=== PATIENT | female | born 1970 | race Caucasian/White ===

== ENCOUNTER → 2016-12-23 | Outpatient (CLI) | payer OTHER ==
--- NOTE | 2016-12-23 16:00 | REPMRS ---
Patient History The patient states she had a clinical breast exam in 12/2016. Family history of prostate cancer in father, ovarian cancer in paternal aunt at age 50 or over, and breast cancer in paternal grandmother at age 50 or over. Digital Woman Screen Mammo: December 23, 2016 - Exam #: [id number] Bilateral CC and MLO view(s) were taken. Technologist: Bonnie Hernandez, Technologist Prior study comparison: December 13, 2015, digital woman screen mammo performed at [facility]. November 29, 2014, digital woman screen mammo performed at [facility]. FINDINGS: The breast tissue is heterogeneously dense. This may lower the sensitivity of mammography. There has been no change in the appearance of the mammogram from the prior studies. There is a moderate amount of residual fibroglandular tissue which is fairly symmetric. There is no interval development of dominant mass, areas of architectural distortion, or clustered microcalcification typical of malignancy. ASSESSMENT: BI-RADS/ACR category 1 mammogram. Negative. Recommendation Routine screening mammogram in 1 year (for women over age 40). This mammogram was interpreted with the aid of an FDA-approved computer-aided dectection system. Electronically Signed By: Lorenzo Mobley MD 12/23/16 [id number]
== END ==
LOC: M WHC 14:36
PROVIDERS: ATTEND Nurse Practitioner Women's Health
DX: Z12.31 Encounter for screening mammogram for malignant neoplasm of breast (principal)

== ENCOUNTER → 2017-05-22 | Outpatient (REF) | payer OTHER ==
[~2017-05-22] MED LIST: ZYRT10TA2 PO
[2017-05-22 16:06] LABS: BASO % 0.6 % (0.0-1.0); EOS # 0.2 K/mm3 (0.0-0.50); EOS % 2.7 % (0.0-3.0); LARGE UNSTAINED CELL # 0.1 K/mm3 (0.0-0.4); LARGE UNSTAINED CELL % 1.6 % (0.0-4.0); LYMPH # 1.6 K/mm3 (1.5-4.5); LYMPH % 21.1 % (24.0-44.0); MEAN CORPUSCULAR HEMOGLOBIN 30.3 pg (27.0-33.0); MEAN CORPUSCULAR HGB CONC 33.4 g/dl (32.0-36.5); MEAN CORPUSCULAR VOLUME 90.5 fl (80.0-96.0); MONO # 0.5 K/mm3 (0.0-0.8); MONO % 6.2 % (0.0-5.0); NEUTROPHILS # 4.9 K/mm3 (1.8-7.7); NEUTROPHILS % 67.8 % (36.0-66.0); PLATELET COUNT, AUTOMATED 193 k/mm3 (150-450); RED CELL DISTRIBUTION WIDTH 12.5 % (11.5-14.5); WHITE BLOOD COUNT 7.3 K/mm3 (4.0-10.0)
[2017-05-22 16:19] LABS: ALBUMIN 3.7 GM/DL (3.2-5.2); ALBUMIN/GLOBULIN RATIO 1.23 (1.00-1.93); ALKALINE PHOSPHATASE 68 U/L (45-117); ALT/SGPT 23 U/L (12-78); ANION GAP 9 MEQ/L (8-16); AST/SGOT 12 U/L (15-37); BILIRUBIN,TOTAL 0.5 MG/DL (0.2-1.0); BLOOD UREA NITROGEN 14 MG/DL (7-18); CALCIUM LEVEL 8.4 MG/DL (8.5-10.1); CARBON DIOXIDE LEVEL 27 MEQ/L (21-32); CHLORIDE LEVEL 105 MEQ/L (98-107); CHOLESTEROL LEVEL 158 MG/DL (<200); FREE T4 1.12 NG/DL (0.76-1.46); GLOMERULAR FILTRATION RATE > 60.0 (>58); GLUCOSE, FASTING 86 MG/DL (70-105); POTASSIUM SERUM 3.9 MEQ/L (3.5-5.1); SODIUM LEVEL 141 MEQ/L (136-145); TOTAL PROTEIN 6.7 GM/DL (6.4-8.2); TRIGLYCERIDES LEVEL 57 MG/DL (<150)
== END ==
LOC: M SFHCSACK 08:02
PROVIDERS: ATTEND Physician Assistant
DX: Z00.00 Encounter for general adult medical examination without abnormal findings (principal); Z13.29 Encounter for screening for other suspected endocrine disorder; Z13.220 Encounter for screening for lipoid disorders; Z13.21 Encounter for screening for nutritional disorder

== ENCOUNTER → 2017-06-03 | Outpatient (REF) | payer OTHER | LOC: M SFHCSACK 15:43 | PROVIDERS: ATTEND Physician Assistant | DX: R30.0 Dysuria (principal) ==

== ENCOUNTER → 2017-06-23 | Outpatient (CLI) | payer OTHER | LOC: M LAB 14:23 | PROVIDERS: ATTEND Physician Assistant | DX: R63.5 Abnormal weight gain (principal) ==

== ENCOUNTER → 2017-06-23 | Outpatient (REF) | payer OTHER | LOC: M SMT 17:09 | PROVIDERS: ATTEND Nurse Practitioner Women's Health | DX: R31.29 Other microscopic hematuria (principal) ==

== ENCOUNTER → 2017-06-25 | Outpatient (REF) | payer OTHER ==
[2017-06-30 14:14] LABS: FREE CORTISOL 24HR URINE 15 ug/24 hr (0-50); FREE CORTISOL URINE 9 ug/L (Undefined)
== END ==
LOC: M SFHCSACK 13:46
PROVIDERS: ATTEND Physician Assistant
DX: R63.5 Abnormal weight gain (principal)

== ENCOUNTER → 2017-06-29 | Outpatient (CLI) | payer OTHER ==
[~2017-06-29] MED LIST changes: +ISOVUE-370 76% 100ML VIAL (Q9967) As Ordered ONE
--- NOTE | 2017-06-30 08:12 | REP ---
Clinical: Hematuria. Technique: Axial precontrast, contrast enhanced, and delayed images of the abdomen and pelvis from the lung bases to the pubic symphysis using 100 ml Isovue 370 intravenous contrast material with coronal and sagittal re-formations. Findings: Evaluation of the urinary tract system demonstrates normal appearance to the kidneys, ureters and bladder in all phases of enhancement. There is no evidence for perinephric stranding, hydroureteronephrosis, intrarenal or obstructing ureteral calculi. No renal cystic or mass lesions appreciated. Liver, spleen, pancreas, and bilateral adrenal glands are normal. The patient is status post cholecystectomy. The enteric system is without obstruction or acute inflammatory process. Pelvis demonstrates normal bladder and age-appropriate uterus/adnexa. No ascites. No free air. No adenopathy. Vasculature is normal. Musculoskeletal structures are intact. Impression: 1. Normal appearance to the urinary tract system. 2. No acute abdominopelvic pathology appreciated. Signed by Oscar Beatty MD 06/30/2017 08:03 A
== END ==
LOC: M RAD 17:00
PROVIDERS: ATTEND Nurse Practitioner Women's Health
DX: R31.29 Other microscopic hematuria (principal)
CPT/HCPCS: 74178; Q9967

== ENCOUNTER → 2017-08-06 | Outpatient (CLI) | payer OTHER ==
[~2017-08-06] MED LIST changes: -ISOVUE-370 76% 100ML VIAL (Q9967) As Ordered ONE
[2017-08-06 10:49] LABS: MEAN CORPUSCULAR HEMOGLOBIN 29.5 pg (27.0-33.0); MEAN CORPUSCULAR HGB CONC 32.8 g/dl (32.0-36.5); MEAN CORPUSCULAR VOLUME 89.9 fl (80.0-96.0); PLATELET COUNT, AUTOMATED 211 10^3/uL (150-450); RED CELL DISTRIBUTION WIDTH 12.5 % (11.5-14.5); WHITE BLOOD COUNT 6.8 10^3/uL (4.0-10.0)
[2017-08-06 11:01] LABS: INR 0.93
[2017-08-06 11:21] LABS: ANION GAP 4 MEQ/L (8-16); BLOOD UREA NITROGEN 13 MG/DL (7-18); CALCIUM LEVEL 8.9 MG/DL (8.5-10.1); CARBON DIOXIDE LEVEL 32 MEQ/L (21-32); CHLORIDE LEVEL 104 MEQ/L (98-107); CREATININE FOR GFR 0.69 MG/DL (0.55-1.02); GLOMERULAR FILTRATION RATE > 60.0 (>58); GLUCOSE, FASTING 89 MG/DL (70-105); POTASSIUM SERUM 4.9 MEQ/L (3.5-5.1); SODIUM LEVEL 140 MEQ/L (136-145)
== END ==
LOC: M LAB 09:48
PROVIDERS: ATTEND Urology
DX: D49.4 Neoplasm of unspecified behavior of bladder (principal)

== ENCOUNTER → 2017-08-31 | Outpatient (CLI) | payer OTHER ==
[~2017-08-31] MED LIST changes: +BACT800T5 PO; +TYLE650T35 PO
== END ==
LOC: M LAB 12:24
PROVIDERS: ATTEND Urology
DX: D49.4 Neoplasm of unspecified behavior of bladder (principal)

== ENCOUNTER 2017-09-02 12:15 | Day surgery (SDC) | payer OTHER ==
[~2017-09-02] VITALS: Ht 180.3 cm; Wt 122.5 kg
[~2017-09-02 12:15] MED LIST changes: -BACT800T5 PO; -TYLE650T35 PO
[2017-09-02] MEDS ORDERED: LR 1,000 ML IV ONE (12:30)
[2017-09-02] MEDS ORDERED: LIDOCAINE 2% INJ 100 MG/5 ML SDV (FOR ANES.) As Ordered ONE (14:07)
[2017-09-02] MEDS ORDERED: dexameTHASONE 4 MG/ML 1ML VIAL (J1100) As Ordered ONE (14:07)
[2017-09-02] MEDS ORDERED: ONDANSETRON 4MG/2ML VIAL (J2405) As Ordered ONE (14:07)
[2017-09-02] MEDS ORDERED: MIDAZOLAM INJ 2 MG/2 ML VIAL (J2250) As Ordered ONE (14:07)
[2017-09-02] MEDS ORDERED: fentaNYL 250 MCG/5 ML INJECTION (J3010) As Ordered ONE (14:07)
[2017-09-02] MEDS ORDERED: PROPOFOL 200 MG/20 ML VIAL As Ordered ONE (14:08)
[2017-09-02] MEDS ORDERED: ROCURONIUM BROMIDE 50 MG/5 ML VIAL/SYRINGE As Ordered ONE (14:08)
[2017-09-02] MEDS ORDERED: NEOSTIGMINE 10 MG/10 ML VIAL (J2710) As Ordered ONE (14:08)
[2017-09-02] MEDS ORDERED: GLYCOPYRROLATE INJ 0.2 MG/ML 2 ML VIAL As Ordered ONE (14:08)
[2017-09-02] MEDS ORDERED: TYLE650T35 PO (14:21)
[2017-09-02] MEDS ORDERED: BACT800T5 PO (14:21)
[2017-09-02] MEDS ORDERED: PERCOCET 5MG/325MG TAB As Ordered ONE (14:36)
[2017-09-02] MEDS ORDERED: NORCO, ANEXSIA 5/325MG TABLET (HYDROcodone/ACETAMINOPHEN) PO PRN (14:45)
[2017-09-02] MEDS ORDERED: fentaNYL 100 MCG/2 ML INJECTION (J3010) IV PRN (14:45)
[2017-09-02] MEDS ORDERED: LR 1,000 ML IV SCH (14:45)
[2017-09-02] MEDS ORDERED: ONDANSETRON 4MG/2ML VIAL (J2405) IV PRN (14:45)
[2017-09-02] MEDS ORDERED: PERCOCET 5MG/325MG TAB PO ONE (15:30)
[2017-09-02] MEDS ORDERED: METOCLOPRAMIDE INJ 10MG/2ML VIAL (J2765) As Ordered ONE (16:54)
[2017-09-02] MEDS ORDERED: METOCLOPRAMIDE INJ 10MG/2ML VIAL (J2765) IV ONE (17:00)
[2017-09-02 18:00] VITALS: BP 114/62
--- NOTE | 2017-09-03 07:31 | RO ---
DATE OF PROCEDURE: 09/02/2017 PREOPERATIVE DIAGNOSIS: Left lateral wall bladder tumor. POSTOPERATIVE DIAGNOSIS: Left lateral wall bladder tumor. SURGERY PERFORMED: Cystoscopy, plus exam under anesthesia plus bipolar transurethral resection of bladder tumor (TURBT). SURGEON: Dr. Roc Alvarez BLADE OPERATOR: None. ANESTHESIA: General. FINDINGS: 2 cm left lateral wall papillary tumor. COMPLICATIONS: None. ESTIMATED BLOOD LOSS: Minimal. HISTORY OF PRESENT ILLNESS: This is a 47-year-old female patient who had a cystoscopy done in the clinic at [facility]. We found a 2 cm left papillary bladder wall tumor. For this reason, she has consented for cystoscopy, exam under anesthesia and TURBT. PROCEDURE DESCRIPTION: In a patient under general anesthesia in supine modified low lithotomy position after prepping and draping the area of concern, which included the entire genitalia and abdomen, we started by introducing a resectoscope under video endoscopic guidance with a 30 degrees lens. The whole bladder was inspected. Both ureteral orifices were seen excreting clear urine. There was a 2 cm left papillary wall tumor. For this reason, we resected the tumor out and with an Ellik evacuator we took the specimen out and sent it for permanent pathology analysis. We fulgurated the base and took out the resectoscope. We then placed a #20 Maori Camejo catheter 3-way, plugged the third way and placed the Camejo to gravity and inflated the balloon to 20 mL. PLAN: The patient will go home with a Camejo catheter for five days. She will follow up at [facility] for a voiding trial. We have given her antibiotic and pain medication for 10 days.
== END 2017-09-02 18:10 | disposition home or self-care (01) ==
LOC: M SDC 12:15
PROVIDERS: ATTEND Urology
DX: D49.4 Neoplasm of unspecified behavior of bladder (principal); J30.89 Other allergic rhinitis; M54.5 Low back pain; G47.33 Obstructive sleep apnea (adult) (pediatric); Z88.1 Allergy status to other antibiotic agents; Z91.041 Radiographic dye allergy status; Z98.51 Tubal ligation status; Z87.891 Personal history of nicotine dependence

== ENCOUNTER → 2017-09-16 | Outpatient (REF) | payer OTHER ==
[~2017-09-16] MED LIST changes: +BACT800T5 PO; +TYLE650T35 PO
[2017-09-16 15:21] LABS: BASO % 0.6 % (0.0-1.0); EOS # 0.2 10^3/uL (0.0-0.50); EOS % 2.4 % (0.0-3.0); IMMATURE GRANULOCYTE % 0.6 % (0-0); LYMPH # 1.4 10^3/uL (1.5-4.5); LYMPH % 20.4 % (24.0-44.0); MEAN CORPUSCULAR HEMOGLOBIN 29.2 pg (27.0-33.0); MEAN CORPUSCULAR HGB CONC 32.3 g/dl (32.0-36.5); MEAN CORPUSCULAR VOLUME 90.3 fl (80.0-96.0); MONO # 0.6 10^3/uL (0.0-0.8); MONO % 8.8 % (0.0-5.0); NEUTROPHILS # 4.6 10^3/uL (1.8-7.7); NEUTROPHILS % 67.2 % (36.0-66.0); PLATELET COUNT, AUTOMATED 227 10^3/uL (150-450); RED CELL DISTRIBUTION WIDTH 12.5 % (11.5-14.5); WHITE BLOOD COUNT 6.8 10^3/uL (4.0-10.0)
[2017-09-16 15:35] LABS: ALBUMIN 3.6 GM/DL (3.2-5.2); ALBUMIN/GLOBULIN RATIO 1.03 (1.00-1.93); ALKALINE PHOSPHATASE 76 U/L (45-117); ALT/SGPT 33 U/L (12-78); ANION GAP 6 MEQ/L (8-16); AST/SGOT 20 U/L (7-37); BILIRUBIN,TOTAL 0.4 MG/DL (0.2-1.0); BLOOD UREA NITROGEN 8 MG/DL (7-18); CALCIUM LEVEL 8.7 MG/DL (8.5-10.1); CARBON DIOXIDE LEVEL 32 MEQ/L (21-32); CHLORIDE LEVEL 102 MEQ/L (98-107); CREATININE FOR GFR 0.85 MG/DL (0.55-1.02); GLOMERULAR FILTRATION RATE > 60.0 (>58); GLUCOSE, FASTING 87 MG/DL (70-105); POTASSIUM SERUM 4.6 MEQ/L (3.5-5.1); SODIUM LEVEL 140 MEQ/L (136-145); TOTAL PROTEIN 7.1 GM/DL (6.4-8.2)
== END ==
LOC: M SFHCSACK 09:43
PROVIDERS: ATTEND Physician Assistant
DX: J30.89 Other allergic rhinitis (principal); E55.9 Vitamin D deficiency, unspecified

== ENCOUNTER → 2017-10-05 | Outpatient (CLI) | payer OTHER | LOC: M SFHCSACK 13:23 | PROVIDERS: ATTEND Nurse Practitioner Women's Health | DX: N39.0 Urinary tract infection, site not specified (principal) ==

== ENCOUNTER → 2017-11-30 | Outpatient (REF) | payer OTHER | LOC: M SMT 17:31 | DX: Z85.51 Personal history of malignant neoplasm of bladder (principal) ==

== ENCOUNTER → 2017-12-23 | Outpatient (REF) | payer OTHER ==
[2017-12-23 14:45] LABS: BASO # 0.1 10^3/uL (0.0-0.2); BASO % 0.8 % (0.0-1.0); EOS # 0.1 10^3/uL (0.0-0.50); EOS % 1.5 % (0.0-3.0); HEMATOCRIT 42.6 % (36.0-47.0); IMMATURE GRANULOCYTE % 0.2 % (0-3.0); LYMPH # 1.8 10^3/uL (1.5-4.5); LYMPH % 29.7 % (24.0-44.0); MEAN CORPUSCULAR HEMOGLOBIN 29.3 pg (27.0-33.0); MEAN CORPUSCULAR HGB CONC 32.9 g/dl (32.0-36.5); MEAN CORPUSCULAR VOLUME 89.1 fl (80.0-96.0); MONO # 0.6 10^3/uL (0.0-0.8); MONO % 10.3 % (0.0-5.0); NEUTROPHILS # 3.5 10^3/uL (1.8-7.7); NEUTROPHILS % 57.5 % (36.0-66.0); PLATELET COUNT, AUTOMATED 202 10^3/uL (150-450); RED BLOOD COUNT 4.78 10^6/uL (4.00-5.40); RED CELL DISTRIBUTION WIDTH 12.5 % (11.5-14.5)
[2017-12-23 15:08] LABS: ALBUMIN 3.9 GM/DL (3.2-5.2); ALBUMIN/GLOBULIN RATIO 1.15 (1.00-1.93); ALKALINE PHOSPHATASE 74 U/L (45-117); ALT/SGPT 25 U/L (12-78); ANION GAP 4 MEQ/L (8-16); AST/SGOT 16 U/L (7-37); BILIRUBIN,TOTAL 0.6 MG/DL (0.2-1.0); BLOOD UREA NITROGEN 14 MG/DL (7-18); CALCIUM LEVEL 8.7 MG/DL (8.5-10.1); CARBON DIOXIDE LEVEL 31 MEQ/L (21-32); CHLORIDE LEVEL 106 MEQ/L (98-107); CREATININE FOR GFR 0.75 MG/DL (0.55-1.30); GLOMERULAR FILTRATION RATE > 60.0 (>58); GLUCOSE, FASTING 90 MG/DL (70-100); POTASSIUM SERUM 4.7 MEQ/L (3.5-5.1); SODIUM LEVEL 141 MEQ/L (136-145); TOTAL PROTEIN 7.3 GM/DL (6.4-8.2)
[2017-12-23 15:10] LABS: TOTAL 25(OH) VITAMIN D 42.3 NG/ML (30.0-100.0)
== END ==
LOC: M SFHCSACK 09:11
DX: J30.89 Other allergic rhinitis (principal); C67.9 Malignant neoplasm of bladder, unspecified; E55.9 Vitamin D deficiency, unspecified
CPT/HCPCS: 82306

== ENCOUNTER → 2018-03-01 | Outpatient (REF) | payer OTHER | LOC: M SMT 16:56 | DX: Z85.51 Personal history of malignant neoplasm of bladder (principal) ==

== ENCOUNTER → 2018-05-31 | Outpatient (REF) | payer OTHER | LOC: M SMT 17:18 | DX: Z85.51 Personal history of malignant neoplasm of bladder (principal) | CPT/HCPCS: 88108 ==

== ENCOUNTER → 2018-06-30 | Outpatient (REF) | payer OTHER ==
[2018-06-30 10:25] LABS: BASO % 0.4 % (0.0-1.0); EOS # 0.2 10^3/uL (0.0-0.50); EOS % 2.7 % (0.0-3.0); HEMATOCRIT 36.1 % (36.0-47.0); HEMOGLOBIN 12.2 g/dl (12.0-15.5); IMMATURE GRANULOCYTE % 0.7 % (0-3.0); LYMPH # 2.1 10^3/uL (1.5-4.5); LYMPH % 29.1 % (24.0-44.0); MEAN CORPUSCULAR HGB CONC 33.8 g/dl (32.0-36.5); MEAN CORPUSCULAR VOLUME 88.7 fl (80.0-96.0); MONO # 0.7 10^3/uL (0.0-0.8); MONO % 9.9 % (0.0-5.0); NEUTROPHILS % 57.2 % (36.0-66.0); PLATELET COUNT, AUTOMATED 197 10^3/uL (150-450); RED BLOOD COUNT 4.07 10^6/uL (4.00-5.40); RED CELL DISTRIBUTION WIDTH 12.4 % (11.5-14.5); WHITE BLOOD COUNT 7.1 10^3/uL (4.0-10.0)
[2018-06-30 11:10] LABS: ALBUMIN 3.5 GM/DL (3.2-5.2); ALBUMIN/GLOBULIN RATIO 1.09 (1.00-1.93); ALKALINE PHOSPHATASE 71 U/L (45-117); ALT/SGPT 60 U/L (12-78); ANION GAP 6 MEQ/L (8-16); AST/SGOT 27 U/L (7-37); BILIRUBIN,TOTAL 0.5 MG/DL (0.2-1.0); BLOOD UREA NITROGEN 9 MG/DL (7-18); CALCIUM LEVEL 8.5 MG/DL (8.5-10.1); CARBON DIOXIDE LEVEL 31 MEQ/L (21-32); CHLORIDE LEVEL 106 MEQ/L (98-107); CHOLESTEROL LEVEL 148 MG/DL (<200); CHOLESTEROL RISK RATIO 3.288 (<5); CREATININE FOR GFR 0.81 MG/DL (0.55-1.30); FREE T4 1.21 NG/DL (0.76-1.46); GLOMERULAR FILTRATION RATE > 60.0 (>58); GLUCOSE, FASTING 97 MG/DL (70-100); HDL CHOLESTEROL 45 MG/DL (>40); LDL CHOLESTEROL 89 MG/DL (<100); NON-HDL-C 103 MG/DL; POTASSIUM SERUM 4.2 MEQ/L (3.5-5.1); SODIUM LEVEL 143 MEQ/L (136-145); TOTAL 25(OH) VITAMIN D 60.3 NG/ML (30.0-100.0); TOTAL PROTEIN 6.7 GM/DL (6.4-8.2); TRIGLYCERIDES LEVEL 72 MG/DL (<150)
== END ==
LOC: M SFHCSACK 08:34
DX: J30.89 Other allergic rhinitis (principal); Z13.220 Encounter for screening for lipoid disorders; Z13.29 Encounter for screening for other suspected endocrine disorder; E55.9 Vitamin D deficiency, unspecified

== ENCOUNTER → 2018-09-13 | Outpatient (REF) | payer OTHER | LOC: M SMT 17:27 | DX: R39.9 Unspecified symptoms and signs involving the genitourinary system (principal) | CPT/HCPCS: 88108 ==

== ENCOUNTER → 2018-12-13 | Outpatient (REF) | payer OTHER ==
[~2018-12-13] MED LIST changes: +ZYRT10CA5 PO; -ZYRT10TA2 PO
== END ==
LOC: M SMT 16:16
PROVIDERS: ATTEND Urology
DX: Z12.6 Encounter for screening for malignant neoplasm of bladder (principal)

== ENCOUNTER → 2019-03-11 | Outpatient (REF) | payer OTHER ==
[2019-03-11 17:38] LABS: APPEARANCE, URINE CLEAR (CLEAR); BACTERIA, URINE AUTO NEGATIVE (NEGATIVE); BILIRUBIN, URINE AUTO NEGATIVE (NEGATIVE); BLOOD, URINE BLOOD 1+ (NEGATIVE); COLOR, URINE YELLOW (YELLOW); GLUCOSE, URINE (UA) AUTO NEGATIVE (NEGATIVE); KETONE, URINE AUTO NEGATIVE (NEGATIVE); LEUKOCYTE ESTERASE, URINE AUTO NEGATIVE (NEGATIVE); MUCUS, URINE SMALL (NEGATIVE); NITRITE, URINE AUTO NEGATIVE (NEGATIVE); PROTEIN, URINE AUTO NEGATIVE (NEGATIVE); RBC, URINE AUTO 1 /HPF (0-3); SPECIFIC GRAVITY URINE AUTO 1.014 (1.002-1.035); SQUAMOUS EPITHELIAL CELL UR AU 1 /HPF (0-6); UROBILINOGEN, URINE AUTO 0.2 mg/dL (0.0-2.0); WBC, URINE AUTO 1 /HPF (0-3)
== END ==
LOC: M LAB REF 17:07
PROVIDERS: ATTEND Physician Assistant
DX: M54.5 Low back pain (principal)

== ENCOUNTER → 2019-03-18 | Outpatient (REF) | payer OTHER | LOC: M SMT 17:05 | PROVIDERS: ATTEND Urology | DX: C67.9 Malignant neoplasm of bladder, unspecified (principal) ==

== ENCOUNTER → 2019-07-11 | Outpatient (CLI) | payer OTHER ==
[2019-07-11 12:56] LABS: BASO # 0.1 10^3/uL (0.0-0.2); BASO % 0.8 % (0.0-1.0); EOS # 0.2 10^3/uL (0.0-0.5); EOS % 3.2 % (0.0-3.0); HEMATOCRIT 40.7 % (36.0-47.0); HEMOGLOBIN 13.1 g/dl (12.0-15.5); LYMPH # 1.6 10^3/uL (1.5-5.0); LYMPH % 25.7 % (24.0-44.0); MEAN CORPUSCULAR HEMOGLOBIN 28.7 pg (27.0-33.0); MEAN CORPUSCULAR HGB CONC 32.2 g/dl (32.0-36.5); MEAN CORPUSCULAR VOLUME 89.3 fl (80.0-96.0); MONO # 0.7 10^3/uL (0.0-0.8); MONO % 10.6 % (0.0-5.0); NEUTROPHILS # 3.7 10^3/uL (1.5-8.5); NEUTROPHILS % 59.4 % (36.0-66.0); PLATELET COUNT, AUTOMATED 200 10^3/uL (150-450); RED BLOOD COUNT 4.56 10^6/uL (4.00-5.40); WHITE BLOOD COUNT 6.2 10^3/uL (4.0-10.0)
[2019-07-11 13:03] LABS: ALBUMIN 3.7 GM/DL (3.2-5.2); ALT/SGPT 27 U/L (12-78); BILIRUBIN,TOTAL 0.5 MG/DL (0.2-1.0); BLOOD UREA NITROGEN 13 MG/DL (7-18); CALCIUM LEVEL 8.7 MG/DL (8.5-10.1); CARBON DIOXIDE LEVEL 30 MEQ/L (21-32); CHLORIDE LEVEL 105 MEQ/L (98-107); CHOLESTEROL LEVEL 184 MG/DL (<200); CHOLESTEROL RISK RATIO 2.787 (<5); CREATININE FOR GFR 0.76 MG/DL (0.55-1.30); FREE T4 1.06 NG/DL (0.76-1.46); GLOMERULAR FILTRATION RATE > 60.0 (>51); GLUCOSE, FASTING 97 MG/DL (70-100); HDL CHOLESTEROL 66 MG/DL (>40); LDL CHOLESTEROL 106 MG/DL (<100); NON-HDL-C 118 MG/DL; POTASSIUM SERUM 4.5 MEQ/L (3.5-5.1); SODIUM LEVEL 141 MEQ/L (136-145); TOTAL 25(OH) VITAMIN D 46.9 NG/ML (30.0-100.0); TRIGLYCERIDES LEVEL 62 MG/DL (<150)
== END ==
LOC: M WUC 09:34
PROVIDERS: ATTEND Physician Assistant
DX: J30.89 Other allergic rhinitis (principal); Z13.220 Encounter for screening for lipoid disorders; Z13.29 Encounter for screening for other suspected endocrine disorder; E55.9 Vitamin D deficiency, unspecified

== ENCOUNTER → 2019-10-04 | Outpatient (CLI) | payer OTHER ==
--- NOTE | 2019-10-05 09:17 | REPMRS ---
Patient History The patient states she has not had a clinical breast exam in over a year. Family history of breast cancer at age 50 or over in paternal grandmother, ovarian cancer at age 50 or over in paternal aunt, prostate cancer in father. Digital Woman Screen Mammo: October 04, 2019 - Exam #: [id number] Bilateral CC and MLO view(s) were taken. Technologist: Kathi Santo, Technologist Prior study comparison: December 23, 2016, digital woman screen mammo performed at [facility]. December 13, 2015, digital woman screen mammo performed at [facility]. November 29, 2014, digital woman screen mammo performed at [facility]. FINDINGS: The breast tissue is heterogeneously dense. This may lower the sensitivity of mammography. There is a moderate amount of heterogeneously dense fibroglandular tissue which is fairly symmetric. There is no interval development of dominant mass, architectural distortion, or grouped microcalcification typical of malignancy. There has been no change in the appearance of the mammogram from the prior studies. 3-D tomosynthesis shows no additional findings. Assessment: BI-RADS/ACR category 1 mammogram. Negative Mammogram. Recommendation Routine screening mammogram of both breasts in 1 year (for women over age 40). This patient's Lifetime Breast Cancer RIsk is estimated at 14.0 %. This mammogram was interpreted with the aid of an FDA-approved computer-aided dectection system. Electronically Signed By: Quinton Westbrook MD 10/05/19 0965
== END ==
LOC: M WHC 14:08
PROVIDERS: ATTEND Nurse Practitioner Women's Health
DX: Z12.31 Encounter for screening mammogram for malignant neoplasm of breast (principal)

== ENCOUNTER → 2019-10-04 | Outpatient (REF) | payer OTHER | LOC: M PLALAB 14:25 | PROVIDERS: ATTEND Nurse Practitioner Women's Health | DX: Z12.4 Encounter for screening for malignant neoplasm of cervix (principal) ==

== ENCOUNTER → 2019-11-07 | Outpatient (REF) | payer OTHER | LOC: M SMT 17:10 | PROVIDERS: ATTEND Urology | DX: C67.9 Malignant neoplasm of bladder, unspecified (principal) ==

== ENCOUNTER → 2020-05-11 | Outpatient (REF) | payer OTHER ==
[~2020-05-11] MED LIST changes: +ACET650T61 PO; -TYLE650T35 PO
== END ==
LOC: M SMT 07:25
PROVIDERS: ATTEND Urology
DX: C67.9 Malignant neoplasm of bladder, unspecified (principal)

== ENCOUNTER → 2020-08-14 | Outpatient (CLI) | payer OTHER ==
[2020-08-14 10:50] LABS: HEMATOCRIT 41.4 % (36.0-47.0); HEMOGLOBIN 12.9 g/dl (12.0-15.5); MEAN CORPUSCULAR HEMOGLOBIN 27.9 pg (27.0-33.0); MEAN CORPUSCULAR HGB CONC 31.2 g/dl (32.0-36.5); MEAN CORPUSCULAR VOLUME 89.6 fl (80.0-96.0); PLATELET COUNT, AUTOMATED 201 10^3/uL (150-450); RED BLOOD COUNT 4.62 10^6/uL (4.00-5.40); WHITE BLOOD COUNT 5.9 10^3/uL (4.0-10.0)
[2020-08-14 11:22] LABS: ALBUMIN 3.8 GM/DL (3.2-5.2); ALT/SGPT 27 U/L (12-78); BILIRUBIN,TOTAL 0.5 MG/DL (0.2-1.0); BLOOD UREA NITROGEN 13 MG/DL (7-18); CALCIUM LEVEL 9.1 MG/DL (8.5-10.1); CARBON DIOXIDE LEVEL 30 MEQ/L (21-32); CHLORIDE LEVEL 107 MEQ/L (98-107); CHOLESTEROL LEVEL 173 MG/DL (<200); CREATININE FOR GFR 0.73 MG/DL (0.55-1.30); FREE T4 1.18 NG/DL (0.76-1.46); GLOMERULAR FILTRATION RATE > 60.0 (>51); GLUCOSE, FASTING 99 MG/DL (70-100); HDL CHOLESTEROL 62 MG/DL (>40); LDL CHOLESTEROL 97 MG/DL (<100); NON-HDL-C 111 MG/DL; POTASSIUM SERUM 4.7 MEQ/L (3.5-5.1); SODIUM LEVEL 141 MEQ/L (136-145); TRIGLYCERIDES LEVEL 68 MG/DL (<150)
[2020-08-14 11:23] LABS: TOTAL 25(OH) VITAMIN D 62.9 NG/ML (30.0-100.0)
== END ==
LOC: M WUC 09:23
PROVIDERS: ATTEND Physician Assistant
DX: E55.9 Vitamin D deficiency, unspecified (principal); G47.33 Obstructive sleep apnea (adult) (pediatric); E78.00 Pure hypercholesterolemia, unspecified; R63.5 Abnormal weight gain; Z85.51 Personal history of malignant neoplasm of bladder

== ENCOUNTER 2020-08-21 20:12 | Emergency (ER) | payer OTHER ==
[2020-08-21 20:32] LABS: BASO # 0.1 10^3/uL (0.0-0.2); BASO % 0.6 % (0.0-1.0); EOS # 0.2 10^3/uL (0.0-0.5); HEMOGLOBIN 13.3 g/dl (12.0-15.5); LYMPH # 2.8 10^3/uL (1.5-5.0); LYMPH % 31.1 % (24.0-44.0); MEAN CORPUSCULAR HEMOGLOBIN 28.2 pg (27.0-33.0); MEAN CORPUSCULAR HGB CONC 31.7 g/dl (32.0-36.5); MEAN CORPUSCULAR VOLUME 89.2 fl (80.0-96.0); MONO # 0.8 10^3/uL (0.0-0.8); MONO % 9.3 % (0.0-5.0); NEUTROPHILS # 5.1 10^3/uL (1.5-8.5); NEUTROPHILS % 56.8 % (36.0-66.0); PLATELET COUNT, AUTOMATED 225 10^3/uL (150-450); RED BLOOD COUNT 4.71 10^6/uL (4.00-5.40)
[2020-08-21 20:40] LABS: INR 0.92; PROTHROMBIN TIME 12.5 SECONDS (12.5-14.3)
[2020-08-21 21:06] LABS: ALBUMIN 3.9 GM/DL (3.2-5.2); ALT/SGPT 28 U/L (12-78); BILIRUBIN,DIRECT < 0.1 MG/DL (0.0-0.2); BILIRUBIN,TOTAL 0.3 MG/DL (0.2-1.0); CK-MB VALUE MASS 1.4 NG/ML (<3.6); CPK CREATINE PHOSPHOKINASE 59 U/L (26-192); D-DIMER QUANT 316.4 ng/ml (<500); LIPASE 395 U/L (73-393); MB/CK RELATIVE INDEX 2.37 (< OR =4); TOTAL PROTEIN 7.6 GM/DL (6.4-8.2); TROPONIN I < 0.02 NG/ML (< 0.10)
--- NOTE | 2020-08-21 21:09 | REPVR ---
PROCEDURE INFORMATION: Exam: XR Chest, 1 View Exam date and time: 08/21/2020 8:33 PM Age: 50 years old Clinical indication: Chest pain TECHNIQUE: Imaging protocol: XR of the chest Views: 1 view. COMPARISON: No relevant prior studies available. FINDINGS: Lungs: Unremarkable. No consolidation. Pleural space: Unremarkable. No pleural effusion. No pneumothorax. Heart/Mediastinum: Unremarkable. No cardiomegaly. Bones/joints: Unremarkable. IMPRESSION: No acute findings. Electronically signed by: Reno Urrutia On 08/21/2020 21:08:54 PM
[2020-08-21] MEDS ORDERED: KETOROLAC 30 MG/ML 1ML VIAL IV ONE (22:15)
[2020-08-22 01:54] VITALS: BP 107/64
--- NOTE | 2020-08-24 08:52 | ECGEPIP ---
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
--- NOTE | 2020-08-24 08:58 | ECGEPIP ---
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
== END 2020-08-22 01:56 | disposition home or self-care (01) ==
LOC: M ED 20:12
DX: R07.89 Other chest pain (principal); Z85.51 Personal history of malignant neoplasm of bladder; Z91.041 Radiographic dye allergy status; Z88.1 Allergy status to other antibiotic agents; Z87.19 Personal history of other diseases of the digestive system
CPT/HCPCS: 36415; 71045; 80047; 80076; 82550; 82553; 83690; 85025; 85379; 85610; 93005; 93041; 94760; 96374; 99285; J1885

== ENCOUNTER → 2020-08-28 | Outpatient (REF) | payer OTHER | LOC: M SFHCPLAZ 12:50 | PROVIDERS: ATTEND Physician Assistant | DX: R07.9 Chest pain, unspecified (principal) ==

== ENCOUNTER → 2020-08-29 | Outpatient (CLI) | payer OTHER ==
[~2020-08-29] MED LIST changes: +ISOVUE-370 76% 100ML VIAL As Ordered ONE
--- NOTE | 2020-08-29 08:47 | REP ---
INDICATION: RIGHT SIDED CHEST PAIN. COMPARISON: AP chest 08/21/2020 TECHNIQUE: CT angiogram chest performed following the intravenous administration of 75 cc of Isovue 370. Sagittal and coronal reconstruction images are performed. FINDINGS: Lungs: Show minor dependent atelectatic change in the bases. Some minor subsegmental atelectasis in the medial segment right middle lobe abutting the epicardial fat pad adjacent to the heart. No acute infiltrate or pulmonary nodule. Mediastinum: No pathologic sized adenopathy, mass or other visible abnormality. Pulmonary arteries: The main, right and left pulmonary arteries in the mediastinum are without filling defects. The lobar, segmental and subsegmental arteries are also without filling defects or vessel cut off. Summer: No adenopathy. Axilla: In the axilla or supraclavicular region. Pleura: There is no effusion, pleural based mass or pleural plaque. Heart: Not enlarged. No pericardial thickening or effusion. Thoracic aorta: There is no aneurysm or dissection the thoracic aorta. Upper abdominal structures: No definite hiatal hernia. There is some eventration of the right diaphragm but no hepatic mass, hepatosplenomegaly biliary dilatation or ascites clips from prior cholecystectomy are noted adrenal glands without acute finding. Upper poles of kidneys intact. Pancreas intact. Gallbladder surgically absent. Visualized osseous structures: Age-appropriate degenerative changes in the spine and shoulders but no compression deformity or acute finding. IMPRESSION: No CT evidence of pulmonary embolism.No infiltrate seen. <Electronically signed by Ty Kendrick > 08/29/20 0819
== END ==
LOC: M RAD 08-28 09:35
PROVIDERS: ATTEND Physician Assistant
DX: R07.9 Chest pain, unspecified (principal)
CPT/HCPCS: 71275; Q9967

== ENCOUNTER → 2020-08-30 | Outpatient (CLI) | payer OTHER ==
[~2020-08-30] MED LIST changes: -ISOVUE-370 76% 100ML VIAL As Ordered ONE
--- NOTE | 2020-09-03 11:55 | ECHO ---
DATE OF PROCEDURE: 08/30/2020 Age: 50 Gender: Female Height: 180 cm Weight: 122 kg REFERRING: FRANKO Driscoll INDICATION: Chest pain, unspecified. MEASUREMENTS: 2D Measurements: Interventricular septum 0.90 cm Posterior wall 0.94 cm Left ventricle diastole 5.4 cm Aortic root 2.6 cm Left atrium 3.6 cm Left atrial volume index 18 Inferior vena cava 2.4 cm Doppler Measurements: No aortic stenosis No aortic regurgitation Very mild mitral regurgitation No mitral stenosis Very mild tricuspid regurgitation Trace pulmonic regurgitation Aortic valve velocity 153 cm/s LVOT velocity 130 cm/s Mitral E velocity 104 cm/s Mitral A velocity 71.6 cm/s Mitral deceleration time 130 msec Estimated right ventricle systolic pressure 25-30 mmHg Estimated right atrial pressure 5-10 mmHg Pulmonary artery systolic pressure 169 msec MITRAL ANNULAR TISSUE DOPPLER E prime septal 11.8 cm/s, E prime lateral 10.7 cm/s DESCRIPTION: Rhythm was sinus. Image quality was fair. This was a 2D, M-mode, color flow Doppler, and pulsed wave Doppler examination including mitral annular tissue Doppler. CONCLUSIONS: 1. Normal left ventricle internal dimensions and wall thickness. Normal left ventricular (LV) wall motion and wall thickening. Normal left ventricular (LV) systolic function. Left ventricular ejection fraction (LVEF) 65% by visual estimate. Normal left ventricular (LV) diastolic function. 2. No pericardial effusion. 3. Mild mitral annular calcification with very mild mitral regurgitation. 4. Otherwise normal appearing echocardiogram Doppler findings. MTDD
== END ==
LOC: M CARPUL 11:54
PROVIDERS: ATTEND Physician Assistant
DX: R07.9 Chest pain, unspecified (principal)

== ENCOUNTER → 2020-09-21 | Outpatient (CLI) | payer OTHER ==
[~2020-09-21] MED LIST changes: +ONDA4TAB6 PO
== END ==
LOC: M LABSMTC 10:53
PROVIDERS: ATTEND Family Medicine
DX: Z20.828 Contact with and (suspected) exposure to other viral communicable diseases (principal)

== ENCOUNTER 2020-09-26 12:52 | Emergency (ER) | payer OTHER ==
[~2020-09-26 12:52] MED LIST changes: -ONDA4TAB6 PO
[2020-09-26] MEDS ORDERED: NS 1,000 ML IV ONE ×2 (13:15)
[2020-09-26] MEDS ORDERED: METOCLOPRAMIDE INJ 10MG/2ML VIAL (J2765 PER 1) IV ONE (13:15)
[2020-09-26 14:18] LABS: BLOOD UREA NITROGEN 10 MG/DL (7-18); CALCIUM LEVEL 8.1 MG/DL (8.5-10.1); CARBON DIOXIDE LEVEL 29 MEQ/L (21-32); CHLORIDE LEVEL 107 MEQ/L (98-107); CREATININE FOR GFR 0.86 MG/DL (0.55-1.30); GLOMERULAR FILTRATION RATE > 60.0 (>51); GLUCOSE, FASTING 108 MG/DL (70-100); SODIUM LEVEL 141 MEQ/L (136-145)
[2020-09-26] MEDS ORDERED: ONDA4TAB6 PO (15:02)
[2020-09-26 16:31] VITALS: BP 149/74
== END 2020-09-26 16:34 | disposition home or self-care (01) ==
LOC: M ED 12:52 → EDBD 12:52 → M ED 16:34
DX: U07.1 COVID-19 (principal); G47.33 Obstructive sleep apnea (adult) (pediatric); Z85.51 Personal history of malignant neoplasm of bladder; Z87.891 Personal history of nicotine dependence; Z91.041 Radiographic dye allergy status; Z88.1 Allergy status to other antibiotic agents
CPT/HCPCS: 36415; 80048; 96361; 96374; 99284; J2765

== ENCOUNTER 2020-09-29 19:22 | Inpatient (IN) | payer OTHER ==
[~2020-09-29] VITALS: Ht 177.8 cm; Wt 122.7 kg
[~2020-09-29 19:22] MED LIST changes: +ONDA4TAB6 PO
[2020-09-29 20:10] LABS: BASO % 0.2 % (0.0-1.0); HEMATOCRIT 39.5 % (36.0-47.0); HEMOGLOBIN 12.5 g/dl (12.0-15.5); LYMPH # 1.1 10^3/uL (1.5-5.0); LYMPH % 17.9 % (24.0-44.0); MEAN CORPUSCULAR HGB CONC 31.6 g/dl (32.0-36.5); MEAN CORPUSCULAR VOLUME 88.6 fl (80.0-96.0); MONO # 0.6 10^3/uL (0.0-0.8); MONO % 9.4 % (0.0-5.0); NEUTROPHILS # 4.3 10^3/uL (1.5-8.5); NEUTROPHILS % 71.5 % (36.0-66.0); PLATELET COUNT, AUTOMATED 168 10^3/uL (150-450); RED BLOOD COUNT 4.46 10^6/uL (4.00-5.40)
[2020-09-29 20:20] LABS: INR 0.92; PROTHROMBIN TIME 12.5 SECONDS (12.5-14.3)
[2020-09-29 20:21] LABS: PARTIAL THROMBOPLASTIN TIME 30.8 SECONDS (24.2-38.5)
[2020-09-29 20:24] LABS: D-DIMER QUANT 863.13 ng/ml (<500)
[2020-09-29 20:39] LABS: ALT/SGPT 32 U/L (12-78); BLOOD UREA NITROGEN 9 MG/DL (7-18); CALCIUM LEVEL 7.9 MG/DL (8.5-10.1); CARBON DIOXIDE LEVEL 29 MEQ/L (21-32); CHLORIDE LEVEL 107 MEQ/L (98-107); CREATININE FOR GFR 0.82 MG/DL (0.55-1.30); GLOMERULAR FILTRATION RATE > 60.0 (>51); GLUCOSE, FASTING 117 MG/DL (70-100); POTASSIUM SERUM 3.3 MEQ/L (3.5-5.1); SODIUM LEVEL 141 MEQ/L (136-145)
[2020-09-29 20:40] LABS: ALBUMIN 2.9 GM/DL (3.2-5.2); BILIRUBIN,TOTAL 0.3 MG/DL (0.2-1.0); C REACTIVE PROTEIN QUANTITATIV 7.56 MG/DL (0.00-0.30); CK-MB VALUE MASS 1.3 NG/ML (<3.6); CPK CREATINE PHOSPHOKINASE 41 U/L (26-192); FERRITIN 527 NG/ML (8-252); LDH LACTATE DEHYDROGENASE 301 U/L (84-246); MB/CK RELATIVE INDEX 3.17 (< OR =4); TOTAL PROTEIN 6.1 GM/DL (6.4-8.2); TROPONIN I < 0.02 NG/ML (< 0.10)
[2020-09-29] MEDS ORDERED: ACETAMINOPHEN 325 MG TAB PO ONE (21:00)
--- NOTE | 2020-09-29 22:04 | REPVR ---
PROCEDURE INFORMATION: Exam: XR Chest, 1 View Exam date and time: 09/29/2020 9:57 PM Age: 50 years old Clinical indication: Shortness of breath; Additional info: Coronavirus workup TECHNIQUE: Imaging protocol: XR of the chest Views: 1 view. COMPARISON: CR PORTABLE CHEST X-RAY 08/21/2020 8:24 PM FINDINGS: Lungs: Bilateral pulmonary infiltrates. Findings consistent with bilateral pneumonitis, likely viral. Pleural space: Unremarkable. No pleural effusion. No pneumothorax. Heart/Mediastinum: Unremarkable. No cardiomegaly. Bones/joints: Unremarkable. IMPRESSION: Bilateral pulmonary infiltrates. Findings consistent with bilateral pneumonitis, likely viral. Electronically signed by: Johny Mcdonald On 09/29/2020 22:04:47 PM
[2020-09-29] MEDS ORDERED: ZINC1TAB2 PO (23:55)
[2020-09-29] MEDS ORDERED: LOPE2TAB12 PO (23:55)
[2020-09-29] MEDS ORDERED: ACET-838 PO (23:55)
[2020-09-29] MEDS ORDERED: BENA25CA4 PO (23:55)
[2020-09-30] VITALS (9 sets, daily range): BP systolic 109–126; BP diastolic 59–71; O2SAT 93–96
[2020-09-30] MEDS ORDERED: ENOXAPARIN 100MG/1ML SYRINGE (J1650 PER 10MG) SC SCH
--- NOTE | 2020-09-30 03:40 | HPEPDOC ---
[facility] Medical History & Physical Date of Admission Sep 29, 2020 Date of Service: Sep 29, 2020 Attending Physician: Don Gillette MD History and Physical CHIEF COMPLAINT: shortness of breath, fevers HISTORY OF PRESENT ILLNESS: Clari Zambrano is a 50-year-old female with history of bladder cancer status post surgery who presented to the ED with 1 week shortness of breath, fevers, fatigue and known exposure to [place] in 19 infection. She states she took care of her [id number] who was diagnosed over a week ago and is now hospitalized. Clari has tried taking Mucinex, Robitussin, Zofran and Tylenol but states that as soon as her Tylenol wears off her fevers return. She has been coughing and only producing clear sputum and has been having severe diarrhea every hour. Her highest fever at home was measured at 102.5. She has been eating well and tolerating food. In the ED, she was found to be requiring 2 L to maintain saturations in the low 90s and desaturating with activity to the 80s. A chest x-ray was consistent with viral pneumonitis. Her inflammatory markers are only marginally elevated PAST MEDICAL HISTORY: 1. Bladder cancer, s/p surgery 2017 PAST SURGICAL HISTORY: 1. Bladder cancer resection, 2017 2. Tubal ligation 3. Cholecystectomy 4. Endometrial ablation SOCIAL HISTORY: Never smoker Non drinker No other drugs Lives with . Self-employed FAMILY HISTORY: Reviewed and noncontributory ALLERGIES: Please see below. REVIEW OF SYSTEMS: 10 point review of systems negative other than what is stated above HOME MEDICATIONS: Please see below. PHYSICAL EXAMINATION: VITAL SIGNS: see below GENERAL: alert and oriented, in no apparent distress, conversant in full sentences. HEENT: PERRL, EOMI, Oral mucous membranes are moist without lesions. NECK: The patient has no noted JVD. No adenopathy is appreciated. No thyromegaly CHEST/LUNGS: There are diffuse rales bilaterally with upper airway wheezing. There is no subcutaneous air appreciated. There is no tenderness to the chest wall. HEART:Regular rate and rhythm. No murmurs, rubs, or gallops are appreciated. D istal pulses are 2+. No carotid bruits appreciated. ABDOMEN: Soft, nontender, and nondistended. Bowel sounds are positive. No organomegaly is appreciated. No masses are appreciated. There are no peritoneal signs. There is no [place] sign. EXTREMITIES: No peripheral edema. There is no focal long bone tenderness or deformity. SKIN: The patients skin is warm and dry, without rashes or lesions. PSYCHIATRIC: AAO x 3, normal mood/affect NEUROLOGIC: The patient has 5/5 strength to the upper and lower extremities bilaterally. Sensation is intact throughout. Deep tendon reflexes are 2+ in all four extremities. There are no deficits to the cranial nerves. LABORATORY DATA: See below. IMAGING: CXR: FINDINGS: Lungs: Bilateral pulmonary infiltrates. Findings consistent with bilateral pneumonitis, likely viral. Pleural space: Unremarkable. No pleural effusion. No pneumothorax. Heart/Mediastinum: Unremarkable. No cardiomegaly. Bones/joints: Unremarkable. IMPRESSION: Bilateral pulmonary infiltrates. Findings consistent with bilateral pneumonitis, likely viral. MICROBIOLOGY: Please see below. ASSESSMENT: This is a 50-year-old female with history of bladder cancer who presents with fevers, fatigue, diarrhea found to be positive for Covid 19 pneumonia. . PLAN: 1. Covid 19 pneumonia: The patient will be admitted to the Covid floor. As her BMI is greater than 30 she is at higher risk of poor outcomes -IV dexamethasone 6 mg 10 days -Symptomatic treatment with Robitussin, Tessalon Perles -Tylenol for fevers -Anticoagulation with Lovenox 60 mg every 12 hours -Will trend CBC, BMP for now -No indication for Remdesivir at this time -Encourage proning -Pro calcitonin pending 2. Hypokalemia: K found to be 3.3 -Replaced DVT prophylaxis: Lovenox Vital Signs Vital Signs Date Time Temp Pulse Resp B/P (MAP) Pulse Ox O2 Delivery O2 Flow Rate FiO2 09/29/20 19:58 Room Air 09/29/20 19:35 77 24 130/72 100 4.0 Laboratory Data Labs 24H Laboratory Tests 2 09/29/20 19:40: Immature Granulocyte % (Auto) 1.0, Neutrophils (%) (Auto) 71.5H, Lymphocytes (%) (Auto) 17.9L, Monocytes (%) (Auto) 9.4H, Eosinophils (%) (Auto) 0.0, Basophils (%) (Auto) 0.2, Neutrophils # (Auto) 4.3, Lymphocytes # (Auto) 1.1L, Monocytes # (Auto) 0.6, Eosinophils # (Auto) 0.0, Basophils # (Auto) 0.0, Nucleated Red Blood Cells % (auto) 0.0, Prothrombin Time 12.5, Prothromb Time International Ratio 0.92, Activated Partial Thromboplast Time 30.8, Fibrinogen 612H, D-Dimer, Quantitative 863.13H, Anion Gap 5L, Glomerular Filtration Rate > 60.0, Lactic Acid Level 1.9, Calcium Level 7.9L, Magnesium Level 2.0, Ferritin 527H, Total Bilirubin 0.3, Aspartate Amino Transf (AST/SGOT) 28, Alanine Aminotransferase (ALT/SGPT) 32, Alkaline Phosphatase 70, Lactate Dehydrogenase 301H, Total Creatine Kinase 41, Creatine Kinase MB 1.3, Creatine Kinase MB Relative Index 3.17, Troponin I < 0.02, C-Reactive Protein, Quantitative 7.56H, Total Protein 6.1L, Albumin 2.9L, Albumin/Globulin Ratio 0.9L 09/29/20 21:00: Urine Color YELLOW, Urine Appearance HAZY, Urine pH 5.0, Urine Specific [place] 1.029, Urine Protein 2+H, Urine Glucose (UA) NEGATIVE, Urine Ketones NEGATIVE, Urine Blood 1+H, Urine Nitrite NEGATIVE, Urine Bilirubin NEGATIVE, Urine Urobilinogen 2.0H, Urine Leukocyte Esterase NEGATIVE, Urine WBC (Auto) 4H, Urine RBC (Auto) 7H, Urine Hyaline Casts (Auto) 0, Urine Bacteria (Auto) NEGATIVE, Urine Squamous Epithelial Cells 2, Urine Mucus (Auto) SMALL, Urine Sperm (Auto) CBC/BMP Laboratory Tests 09/29/20 19:40 Microbiology Microbiology 09/29/20 Blood Culture, Received Pending 09/29/20 Blood Culture, Received Pending Home Medications Scheduled Zinc (Zinc) 50 Mg Tablet, 50 MG PO DAILY Scheduled PRN Acetaminophen (Acetaminophen) 325 Mg Tablet, 650 MG PO Q6H PRN for PAIN / FEVER Diphenhydramine HCl (Benadryl) 25 Mg Capsule, 25 MG PO Q6H PRN for ITCHING Loperamide HCl (Imodium A-D) 2 Mg Tablet, 2 MG PO ASDIRECTED PRN for DIARRHEA Ondansetron (Ondansetron Odt) 4 Mg Tab.rapdis, 4 MG PO Q6-8HP PRN for nausea/vomiting Allergies Coded Allergies: Contrast Media (Verified Allergy, Unknown, 08/21/20) ciprofloxacin (Verified Allergy, Unknown, 08/21/20) levofloxacin (Verified Allergy, Unknown, 08/21/20) GME ATTESTATION GME ATTESTATION My faculty preceptor for this patient encounter was physically present during the encounter and was fully available. All aspects of the patient interview, examination, medical decision making process, and medical care plan development were reviewed and approved by the faculty preceptor. The faculty preceptor is aware and concurs with the plan as stated in the body of this note and will attest to such by his/her cosignature. KIRBY PEARSON MD Sep 29, 2020 23:23
[2020-09-30] MEDS ORDERED: guaiFENesin DM LIQ 10ML UD PO PRN (03:45)
[2020-09-30] MEDS: POTASSIUM CHLORIDE 10 MEQ SR TABLET PO SCH ×2 (04:27→05:46)
[2020-09-30] MEDS: ENOXAPARIN 60MG/0.6ML SYRINGE (J1650 PER 10MG) SC SCH ×3 (04:28→23:45)
[2020-09-30] MEDS: BENZONATATE 100 MG CAP PO SCH ×3 (05:46→21:06)
[2020-09-30 06:46] LABS: BASO % 0.2 % (0.0-1.0); HEMATOCRIT 42.8 % (36.0-47.0); LYMPH # 1.1 10^3/uL (1.5-5.0); LYMPH % 18.5 % (24.0-44.0); MEAN CORPUSCULAR HEMOGLOBIN 28.5 pg (27.0-33.0); MEAN CORPUSCULAR HGB CONC 32.7 g/dl (32.0-36.5); MONO # 0.5 10^3/uL (0.0-0.8); MONO % 7.4 % (0.0-5.0); NEUTROPHILS # 4.4 10^3/uL (1.5-8.5); NEUTROPHILS % 73.1 % (36.0-66.0); PLATELET COUNT, AUTOMATED 190 10^3/uL (150-450); RED BLOOD COUNT 4.92 10^6/uL (4.00-5.40); WHITE BLOOD COUNT 6.1 10^3/uL (4.0-10.0)
[2020-09-30 07:17] LABS: ALBUMIN 3.1 GM/DL (3.2-5.2); ALT/SGPT 36 U/L (12-78); BILIRUBIN,DIRECT 0.1 MG/DL (0.0-0.2); BILIRUBIN,TOTAL 0.4 MG/DL (0.2-1.0); BLOOD UREA NITROGEN 9 MG/DL (7-18); CALCIUM LEVEL 8.3 MG/DL (8.5-10.1); CARBON DIOXIDE LEVEL 26 MEQ/L (21-32); CHLORIDE LEVEL 108 MEQ/L (98-107); CREATININE FOR GFR 0.72 MG/DL (0.55-1.30); FERRITIN 576 NG/ML (8-252); GLOMERULAR FILTRATION RATE > 60.0 (>51); GLUCOSE, FASTING 154 MG/DL (70-100); MAGNESIUM LEVEL 2.2 MG/DL (1.8-2.4); POTASSIUM SERUM 3.8 MEQ/L (3.5-5.1); SODIUM LEVEL 141 MEQ/L (136-145); TOTAL PROTEIN 6.7 GM/DL (6.4-8.2)
--- NOTE | 2020-09-30 08:57 | ECGEPIP ---
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 : 1970 Requested By: RUFUS HOLLINS Order Number: [id number] Reading MD: Krys Mack Measurements Intervals [place] Rate: 80 P: 57 MI: 140 QRS: 40 QRSD: 91 T: 60 QT: 343 QTc: 397 Interpretive Statements SINUS RHYTHM DECREASED RATE 08/22/20 Electronically Signed on 09-30-2020 8:57:08 EST by Krys Mack
[2020-09-30] MEDS: dexameTHASONE 4 MG/ML 1ML VIAL (J1100 PER 1MG) IV SCH (09:03)
[2020-09-30 13:18] LABS: INR 0.91; PROTHROMBIN TIME 12.4 SECONDS (12.5-14.3)
[2020-09-30 13:19] LABS: PARTIAL THROMBOPLASTIN TIME 30.1 SECONDS (24.2-38.5)
[2020-09-30] MEDS: ACETAMINOPHEN TAB 650MG DOSE (2X325MG) PO PRN (13:20)
[2020-09-30 13:21] LABS: D-DIMER QUANT 744.09 ng/ml (<500)
--- NOTE | 2020-09-30 14:21 | IPNPDOC ---
Text Note Date of Service The patient was seen on 09/30/20. NOTE Subjective: -Reports that she feels slightly better, but still quite poorly Objective: VITAL SIGNS: see below GENERAL: alert and oriented, in no apparent distress, conversant in full sentences. Flushed face and chest area HEENT: PERRL, EOMI, Oral mucous membranes are moist without lesions. NECK: The patient has no noted JVD. CHEST/LUNGS: There are diffuse rales bilaterally without wheezing on my examination. HEART: Regular rate and rhythm. No murmurs, rubs, or gallops are appreciated. ABDOMEN: Normoactive sounds, soft, nontender, and nondistended. Bowel sounds are positive. No organomegaly is appreciated, and without rebound or guarding EXTREMITIES: No peripheral edema, WWP. SKIN: The patients skin is warm and dry, without rashes or lesions. PSYCHIATRIC: AAO x 3, normal mood/affect NEUROLOGIC: The patient has 5/5 strength to the upper and lower extremities bi laterally. Sensation is intact throughout. CN3-12 intact. LABORATORY DATA: Reviewed WBC 6.1 hgb 14 platelets 190 na 141 K 3.8 Cr 0.62 IMAGING: CXR: FINDINGS: Lungs: Bilateral pulmonary infiltrates. Findings consistent with bilateral pneumonitis, likely viral. Pleural space: Unremarkable. No pleural effusion. No pneumothorax. Heart/Mediastinum: Unremarkable. No cardiomegaly. Bones/joints: Unremarkable. IMPRESSION: Bilateral pulmonary infiltrates. Findings consistent with bilateral pneumonitis, likely viral. MICROBIOLOGY: Please see below. ASSESSMENT: This is a 50-year-old W with history of bladder cancer who presents with fevers, fatigue, diarrhea found to have Covid 19 pneumonia. . PLAN: 1. Covid 19 pneumonia: As her BMI is greater than 30 she is at higher risk of poor outcomes -IV dexamethasone 6 mg 10 days -Symptomatic treatment with Robitussin, Tessalon Perles -Tylenol for fevers -Anticoagulation with Lovenox 60 mg every 12 hours -Will trend CBC, BMP for now -No indication for Remdesivir at this time -Encourage proning -f/u covid-19 inflammatory marker labs per protocol -supplemental O2 - 2. Hypokalemia: repleted DVT prophylaxis: Lovenox BID VS,Fishbone, I+O VS, Fishbone, I+O Laboratory Tests 12/12/20 19:40 09/30/20 06:20 Vital Signs Date Time Temp Pulse Resp B/P (MAP) Pulse Ox O2 Delivery O2 Flow Rate FiO2 09/30/20 13:10 97.8 82 20 126/68 (87) 95 Nasal Cannula 2.0 I&O- Last 24 Hours up to 6 AM 09/30/20 06:00 Intake Total 240 ml Output Total 200 ml Balance 40 ml SY LOPEZ MD Sep 30, 2020 14:21
[2020-09-30 18:02] LABS: ALBUMIN 3.1 GM/DL (3.2-5.2); ALT/SGPT 40 U/L (12-78); BILIRUBIN,DIRECT 0.1 MG/DL (0.0-0.2); BILIRUBIN,TOTAL 0.3 MG/DL (0.2-1.0); C REACTIVE PROTEIN QUANTITATIV 5.77 MG/DL (0.00-0.30); CK-MB VALUE MASS 1.4 NG/ML (<3.6); CPK CREATINE PHOSPHOKINASE 34 U/L (26-192); LDH LACTATE DEHYDROGENASE 334 U/L (84-246); MB/CK RELATIVE INDEX 4.12 (< OR =4); NT-PRO BNP 201 PG/ML (<125); TOTAL PROTEIN 6.9 GM/DL (6.4-8.2); TRIGLYCERIDES LEVEL 145 MG/DL (<150); TROPONIN I < 0.02 NG/ML (< 0.10)
[2020-09-30 23:37] LABS: BASO % 0.2 % (0.0-1.0); HEMATOCRIT 41.4 % (36.0-47.0); HEMOGLOBIN 13.1 g/dl (12.0-15.5); LYMPH # 1.5 10^3/uL (1.5-5.0); LYMPH % 15.1 % (24.0-44.0); MEAN CORPUSCULAR HGB CONC 31.6 g/dl (32.0-36.5); MEAN CORPUSCULAR VOLUME 88.5 fl (80.0-96.0); MONO % 10.5 % (0.0-5.0); NEUTROPHILS # 7.1 10^3/uL (1.5-8.5); PLATELET COUNT, AUTOMATED 218 10^3/uL (150-450); RED BLOOD COUNT 4.68 10^6/uL (4.00-5.40); WHITE BLOOD COUNT 9.7 10^3/uL (4.0-10.0)
[2020-09-30 23:52] LABS: INR 0.94; PROTHROMBIN TIME 12.8 SECONDS (12.5-14.3)
[2020-09-30 23:53] LABS: PARTIAL THROMBOPLASTIN TIME 29.6 SECONDS (24.2-38.5)
[2020-09-30 23:55] LABS: D-DIMER QUANT 596.22 ng/ml (<500)
[2020-10-01] VITALS (7 sets, daily range): BP systolic 120–127; BP diastolic 59–69; O2SAT 93–98
[2020-10-01 00:02] LABS: C REACTIVE PROTEIN QUANTITATIV 3.36 MG/DL (0.00-0.30); FERRITIN 571 NG/ML (8-252); LDH LACTATE DEHYDROGENASE 293 U/L (84-246); NT-PRO BNP 123 PG/ML (<125); TRIGLYCERIDES LEVEL 191 MG/DL (<150); TROPONIN I < 0.02 NG/ML (< 0.10)
[2020-10-01] MEDS: BENZONATATE 100 MG CAP PO SCH ×3 (05:35→21:07)
[2020-10-01 07:42] LABS: BASO % 0.1 % (0.0-1.0); HEMATOCRIT 40.6 % (36.0-47.0); HEMOGLOBIN 13.1 g/dl (12.0-15.5); LYMPH # 1.5 10^3/uL (1.5-5.0); LYMPH % 16.5 % (24.0-44.0); MEAN CORPUSCULAR HEMOGLOBIN 28.7 pg (27.0-33.0); MEAN CORPUSCULAR HGB CONC 32.3 g/dl (32.0-36.5); MONO # 0.9 10^3/uL (0.0-0.8); MONO % 10.1 % (0.0-5.0); NEUTROPHILS # 6.5 10^3/uL (1.5-8.5); PLATELET COUNT, AUTOMATED 217 10^3/uL (150-450); RED BLOOD COUNT 4.56 10^6/uL (4.00-5.40)
[2020-10-01 07:55] LABS: INR 0.94; PROTHROMBIN TIME 12.8 SECONDS (12.5-14.3)
[2020-10-01 07:56] LABS: PARTIAL THROMBOPLASTIN TIME 31.6 SECONDS (24.2-38.5)
[2020-10-01 07:58] LABS: D-DIMER QUANT 576.2 ng/ml (<500)
[2020-10-01 08:08] LABS: ALBUMIN 2.8 GM/DL (3.2-5.2); ALT/SGPT 42 U/L (12-78); BILIRUBIN,DIRECT 0.1 MG/DL (0.0-0.2); BILIRUBIN,TOTAL 0.3 MG/DL (0.2-1.0); BLOOD UREA NITROGEN 12 MG/DL (7-18); C REACTIVE PROTEIN QUANTITATIV 2.19 MG/DL (0.00-0.30); CALCIUM LEVEL 8.2 MG/DL (8.5-10.1); CARBON DIOXIDE LEVEL 27 MEQ/L (21-32); CHLORIDE LEVEL 111 MEQ/L (98-107); CREATININE FOR GFR 0.66 MG/DL (0.55-1.30); FERRITIN 496 NG/ML (8-252); GLOMERULAR FILTRATION RATE > 60.0 (>51); GLUCOSE, FASTING 128 MG/DL (70-100); MAGNESIUM LEVEL 2.2 MG/DL (1.8-2.4); NT-PRO BNP 146 PG/ML (<125); POTASSIUM SERUM 3.9 MEQ/L (3.5-5.1); SODIUM LEVEL 144 MEQ/L (136-145); TOTAL PROTEIN 6.2 GM/DL (6.4-8.2)
[2020-10-01] MEDS: dexameTHASONE 4 MG/ML 1ML VIAL (J1100 PER 1MG) IV SCH (10:13)
[2020-10-01 11:59] LABS: HEPATITIS B SURFACE ANTIGEN NEGATIVE (NEGATIVE)
[2020-10-01 12:28] LABS: HIV 1&2 SCREEN CENTAUR NEGATIVE (NEGATIVE)
[2020-10-01] MEDS: ENOXAPARIN 60MG/0.6ML SYRINGE (J1650 PER 10MG) SC SCH ×2 (12:36→23:17)
--- NOTE | 2020-10-01 19:40 | IPNPDOC ---
Text Note Date of Service The patient was seen on 10/01/20. NOTE Subjective: -Stable, no changes in how she feels -Still has a dry cough -Feels tired and quite miserable but ok Objective: VITAL SIGNS: see below GENERAL: alert and oriented, in no apparent distress, conversant in full sentences. Flushed face and chest area HEENT: PERRL, EOMI, Oral mucous membranes are moist without lesions. NECK: The patient has no noted JVD. CHEST/LUNGS: More clear today actually with some crackles but moving air better HEART: Regular rate and rhythm. No murmurs, rubs, or gallops are appreciated. ABDOMEN: Normoactive sounds, soft, nontender, and nondistended. Bowel sounds are positive. No organomegaly is appreciated, and without rebound or guarding EXTREMITIES: No peripheral edema, WWP. SKIN: The patients skin is warm and dry, without rashes or lesions. PSYCHIATRIC: AAO x 3, normal mood/affect NEUROLOGIC: The patient has 5/5 strength to the upper and lower extremities bilaterally. Sensation is intact throughout. CN3-12 intact. LABORATORY DATA: Reviewed WBC 9 hgb 13.1 platelets 217 D-dimer 712.23 CRP 2.19 ferritin 496 IMAGING: CXR: FINDINGS: Lungs: Bilateral pulmonary infiltrates. Findings consistent with bilateral pneumonitis, likely viral. Pleural space: Unremarkable. No pleural effusion. No pneumothorax. Heart/Mediastinum: Unremarkable. No cardiomegaly. Bones/joints: Unremarkable. IMPRESSION: Bilateral pulmonary infiltrates. Findings consistent with bilateral pneumonitis, likely viral. MICROBIOLOGY: Please see below. ASSESSMENT: This is a 50-year-old W with history of bladder cancer who presents with fevers, fatigue, diarrhea found to have Covid 19 pneumonia. . PLAN: 1. Covid 19 pneumonia: As her BMI is greater than 30 she is at higher risk of poor outcomes -IV dexamethasone 6 mg 10 days, day 2 -Symptomatic treatment with Robitussin, Tessalon Perles -Tylenol for fevers -Anticoagulation with Lovenox 60 mg every 12 hours -Will trend CBC, BMP for now -No indication for Remdesivir at this time -Encourage proning -f/u covid-19 inflammatory marker labs per protocol -supplemental O2 - 2. Hypokalemia: repleted DVT prophylaxis: Lovenox BID VS,Fishbone, I+O VS, Fishbone, I+O Laboratory Tests 09/30/20 23:24 10/01/20 07:07 Vital Signs Date Time Temp Pulse Resp B/P (MAP) Pulse Ox O2 Delivery O2 Flow Rate FiO2 10/01/20 18:10 94 Nasal Cannula 3.0 10/01/20 16:00 98.6 64 20 127/60 (82) I&O- Last 24 Hours up to 6 AM 10/01/20 06:00 Intake Total 1100 ml Output Total 800 ml Balance 300 ml SY LOPEZ MD Oct 01, 2020 19:40
[2020-10-02 00:22] LABS: C REACTIVE PROTEIN QUANTITATIV 1.21 MG/DL (0.00-0.30); TROPONIN I < 0.02 NG/ML (< 0.10)
[2020-10-02 04:00] VITALS: BP 139/79
[2020-10-02] MEDS: BENZONATATE 100 MG CAP PO SCH ×3 (05:40→20:31)
[2020-10-02 06:19] LABS: BASO % 0.3 % (0.0-1.0); HEMATOCRIT 39.3 % (36.0-47.0); HEMOGLOBIN 12.7 g/dl (12.0-15.5); LYMPH # 1.5 10^3/uL (1.5-5.0); LYMPH % 18.6 % (24.0-44.0); MEAN CORPUSCULAR HEMOGLOBIN 28.6 pg (27.0-33.0); MEAN CORPUSCULAR HGB CONC 32.3 g/dl (32.0-36.5); MEAN CORPUSCULAR VOLUME 88.5 fl (80.0-96.0); MONO % 12.2 % (0.0-5.0); NEUTROPHILS # 5.2 10^3/uL (1.5-8.5); NEUTROPHILS % 66.6 % (36.0-66.0); PLATELET COUNT, AUTOMATED 212 10^3/uL (150-450); RED BLOOD COUNT 4.44 10^6/uL (4.00-5.40); WHITE BLOOD COUNT 7.8 10^3/uL (4.0-10.0)
[2020-10-02 06:43] LABS: INR 0.95; PROTHROMBIN TIME 12.9 SECONDS (12.5-14.3)
[2020-10-02 06:44] LABS: PARTIAL THROMBOPLASTIN TIME 29.6 SECONDS (24.2-38.5)
[2020-10-02 06:47] LABS: D-DIMER QUANT 584.22 ng/ml (<500)
[2020-10-02 06:50] LABS: ALBUMIN 2.8 GM/DL (3.2-5.2); ALT/SGPT 40 U/L (12-78); BILIRUBIN,DIRECT 0.2 MG/DL (0.0-0.2); BILIRUBIN,TOTAL 0.3 MG/DL (0.2-1.0); BLOOD UREA NITROGEN 13 MG/DL (7-18); C REACTIVE PROTEIN QUANTITATIV 0.94 MG/DL (0.00-0.30); CALCIUM LEVEL 8.3 MG/DL (8.5-10.1); CARBON DIOXIDE LEVEL 30 MEQ/L (21-32); CHLORIDE LEVEL 109 MEQ/L (98-107); CREATININE FOR GFR 0.64 MG/DL (0.55-1.30); FERRITIN 406 NG/ML (8-252); GLOMERULAR FILTRATION RATE > 60.0 (>51); GLUCOSE, FASTING 107 MG/DL (70-100); MAGNESIUM LEVEL 2.2 MG/DL (1.8-2.4); NT-PRO BNP 241 PG/ML (<125); POTASSIUM SERUM 3.7 MEQ/L (3.5-5.1); SODIUM LEVEL 143 MEQ/L (136-145)
[2020-10-02 08:45] VITALS: BP 137/62
[2020-10-02] MEDS: dexameTHASONE 4 MG/ML 1ML VIAL (J1100 PER 1MG) IV SCH (08:48)
[2020-10-02] MEDS: ENOXAPARIN 60MG/0.6ML SYRINGE (J1650 PER 10MG) SC SCH ×2 (12:10→23:30)
[2020-10-02 15:30] VITALS: BP 119/56
[2020-10-02 20:00] VITALS: BP 127/53
[2020-10-02] MEDS: ACETAMINOPHEN TAB 650MG DOSE (2X325MG) PO PRN (20:31)
--- NOTE | 2020-10-02 22:14 | IPNPDOC ---
Text Note Date of Service The patient was seen on 10/02/20. NOTE Subjective: feels better today. Has a dry cough, Oxygen requirement has gone down. Objective: VITAL SIGNS: see below GENERAL: alert and oriented, in no apparent distress, conversant in full sentences. HEENT: PERRL, EOMI, Oral mucous membranes are moist without lesions. NECK: The patient has no noted JVD. CHEST/LUNGS: bilateral vesicular breath sounds, with few basal crackles. HEART: Regular rate and rhythm. No murmurs, rubs, or gallops are appreciated. ABDOMEN: Normoactive sounds, soft, nontender, and nondistended. Bowel sounds are positive. No organomegaly is appreciated, and without rebound or guarding EXTREMITIES: No peripheral edema SKIN: The patients skin is warm and dry, without rashes or lesions. PSYCHIATRIC: AAO x 3, normal mood/affect NEUROLOGIC: The patient has 5/5 strength to the upper and lower extremities bilaterally. Sensation is intact throughout. CN3-12 intact. LABORATORY DATA: Reviewed IMAGING: CXR: Bilateral pulmonary infiltrates. Findings consistent with bilateral pneumonitis, likely viral. ASSESSMENT: This is a 50-year-old W with history of bladder cancer, Obesity, TRACY who presents with fevers, fatigue, diarrhea and found to have Covid 19 pneumonia. Covid 19 pneumonia: IV dexamethasone, ASA, Lovenox BID, Symptomatic treatment with Robitussin, Tessalon Perles Tylenol for fevers Oxygen supplementation . Needing less oxygen today. Encourage proning f/u covid-19 inflammatory marker labs per protocol Markers improving. TRACY use own CPAP Hypokalemia: repleted DVT prophylaxis: Lovenox BID VS,Fishbone, I+O VS, Fishbone, I+O Laboratory Tests 10/02/20 05:32 Vital Signs Date Time Temp Pulse Resp B/P (MAP) Pulse Ox O2 Delivery O2 Flow Rate FiO2 10/02/20 20:00 98.6 63 20 127/53 (77) 96 Nasal Cannula 2.0 I&O- Last 24 Hours up to 6 AM 10/02/20 07:00 Intake Total 1130 ml Output Total 750 ml Balance 380 ml DUSTIN SR MD Oct 02, 2020 22:14
[2020-10-02] MEDS ORDERED: ALBUTEROL 90 MCG/ACT 8GM HFA INHALER INH PRN (22:15)
[2020-10-03 04:00] VITALS: BP 135/71
[2020-10-03] MEDS: BENZONATATE 100 MG CAP PO SCH ×3 (05:29→21:47)
[2020-10-03 06:10] LABS: HEMATOCRIT 38.4 % (36.0-47.0); MEAN CORPUSCULAR HEMOGLOBIN 27.5 pg (27.0-33.0); MEAN CORPUSCULAR HGB CONC 31.3 g/dl (32.0-36.5); MEAN CORPUSCULAR VOLUME 88.1 fl (80.0-96.0); PLATELET COUNT, AUTOMATED 219 10^3/uL (150-450); RED BLOOD COUNT 4.36 10^6/uL (4.00-5.40); WHITE BLOOD COUNT 8.4 10^3/uL (4.0-10.0)
[2020-10-03 06:32] LABS: INR 1.05; PROTHROMBIN TIME 13.9 SECONDS (12.5-14.3)
[2020-10-03 06:33] LABS: PARTIAL THROMBOPLASTIN TIME 28.5 SECONDS (24.2-38.5)
[2020-10-03 06:35] LABS: ALBUMIN 2.8 GM/DL (3.2-5.2); ALT/SGPT 77 U/L (12-78); BILIRUBIN,DIRECT 0.2 MG/DL (0.0-0.2); BILIRUBIN,TOTAL 0.4 MG/DL (0.2-1.0); BLOOD UREA NITROGEN 14 MG/DL (7-18); C REACTIVE PROTEIN QUANTITATIV 0.45 MG/DL (0.00-0.30); CALCIUM LEVEL 7.9 MG/DL (8.5-10.1); CARBON DIOXIDE LEVEL 29 MEQ/L (21-32); CHLORIDE LEVEL 105 MEQ/L (98-107); CREATININE FOR GFR 0.63 MG/DL (0.55-1.30); FERRITIN 456 NG/ML (8-252); GLOMERULAR FILTRATION RATE > 60.0 (>51); GLUCOSE, FASTING 92 MG/DL (70-100); MAGNESIUM LEVEL 2.3 MG/DL (1.8-2.4); NT-PRO BNP 263 PG/ML (<125); POTASSIUM SERUM 3.7 MEQ/L (3.5-5.1); SODIUM LEVEL 142 MEQ/L (136-145); TOTAL PROTEIN 5.9 GM/DL (6.4-8.2)
[2020-10-03 06:36] LABS: D-DIMER QUANT 381.3 ng/ml (<500)
[2020-10-03 06:48] LABS: LYMPHOCYTES 28 % (16-44); NEUTROPHILS 72 % (28-66); PLATELET ESTIMATE NORMAL (NORMAL)
[2020-10-03] MEDS: ENOXAPARIN 60MG/0.6ML SYRINGE (J1650 PER 10MG) SC SCH (12:29)
[2020-10-03 13:32] VITALS: BP 95/50
[2020-10-03 15:08] LABS: BODY FLUID CULTURE Not indicated. (.); HEPATITIS B CORE ANTIBODY IGG Negative (Negative); LEGIONELLA ANTIGEN URINE Negative (Negative); MYCOPLASMA PNEUMONIAE IgG 111 U/mL (0-99); MYCOPLASMA PNEUMONIAE IgM <770 U/mL (0-769); ORGANISM ID Not indicated. (.); SPECIMEN SOURCE Urine (.); URINE STREP PNEUMONIAE ANTIGEN Negative (Negative)
[2020-10-03 20:00] VITALS: BP 112/57
[2020-10-04] MEDS: ENOXAPARIN 60MG/0.6ML SYRINGE (J1650 PER 10MG) SC SCH ×2 (00:31→12:00)
[2020-10-04 04:25] VITALS: BP 109/60
[2020-10-04] MEDS: BENZONATATE 100 MG CAP PO SCH ×2 (05:50→15:46)
[2020-10-04 06:29] LABS: HEMATOCRIT 38.3 % (36.0-47.0); HEMOGLOBIN 12.3 g/dl (12.0-15.5); MEAN CORPUSCULAR HEMOGLOBIN 28.6 pg (27.0-33.0); MEAN CORPUSCULAR HGB CONC 32.1 g/dl (32.0-36.5); MEAN CORPUSCULAR VOLUME 89.1 fl (80.0-96.0); PLATELET COUNT, AUTOMATED 209 10^3/uL (150-450)
--- NOTE | 2020-10-04 06:33 | IPNPDOC ---
Text Note Date of Service The patient was seen on 10/03/20. NOTE Subjective: feels better today. Has a dry cough, Oxygen requirement still at 3 liters overnight. Objective: VITAL SIGNS: see below GENERAL: alert and oriented, in no apparent distress, conversant in full sentences. HEENT: PERRL, EOMI, Oral mucous membranes are moist without lesions. NECK: The patient has no noted JVD. CHEST/LUNGS: bilateral vesicular breath sounds, with few basal crackles. HEART: Regular rate and rhythm. No murmurs, rubs, or gallops are appreciated. ABDOMEN: Normoactive sounds, soft, nontender, and nondistended. Bowel sounds are positive. No organomegaly is appreciated, and without rebound or guarding EXTREMITIES: No peripheral edema SKIN: The patients skin is warm and dry, without rashes or lesions. PSYCHIATRIC: AAO x 3, normal mood/affect NEUROLOGIC: The patient has 5/5 strength to the upper and lower extremities bilaterally. Sensation is intact throughout. CN3-12 intact. LABORATORY DATA: Reviewed IMAGING: CXR: Bilateral pulmonary infiltrates. Findings consistent with bilateral pneumonitis, likely viral. ASSESSMENT: This is a 50-year-old W with history of bladder cancer, Obesity, TRACY who presents with fevers, fatigue, diarrhea and found to have Covid 19 pneumonia. Covid 19 pneumonia with acute hypoxic respiratory failure IV dexamethasone, ASA, Lovenox BID, Symptomatic treatment with Robitussin, Tessalon Perles Tylenol for fevers Oxygen supplementation Encourage proning f/u covid-19 inflammatory marker labs per protocol Markers improving. TRACY Does not have her CPAP here. Hypokalemia: replated DVT prophylaxis: Lovenox BID VS,Fishbone, I+O VS, Fishbone, I+O Laboratory Tests 10/03/20 05:47 Vital Signs Date Time Temp Pulse Resp B/P (MAP) Pulse Ox O2 Delivery O2 Flow Rate FiO2 10/03/20 06:00 96 Nasal Cannula 3.0 10/03/20 04:00 98.7 60 24 135/71 (92) I&O- Last 24 Hours up to 6 AM 10/03/20 07:00 Intake Total 1380 ml Output Total 1050 ml Balance 330 ml DUSTIN SR MD Oct 03, 2020 06:55
[2020-10-04 06:39] LABS: INR 0.92; PROTHROMBIN TIME 12.6 SECONDS (12.5-14.3)
[2020-10-04 06:40] LABS: PARTIAL THROMBOPLASTIN TIME 31.7 SECONDS (24.2-38.5)
[2020-10-04 06:43] LABS: D-DIMER QUANT 385.58 ng/ml (<500)
[2020-10-04 07:02] LABS: ALBUMIN 2.6 GM/DL (3.2-5.2); ALT/SGPT 101 U/L (12-78); BILIRUBIN,DIRECT 0.1 MG/DL (0.0-0.2); BILIRUBIN,TOTAL 0.4 MG/DL (0.2-1.0); BLOOD UREA NITROGEN 13 MG/DL (7-18); C REACTIVE PROTEIN QUANTITATIV 0.72 MG/DL (0.00-0.30); CALCIUM LEVEL 8.1 MG/DL (8.5-10.1); CARBON DIOXIDE LEVEL 31 MEQ/L (21-32); CHLORIDE LEVEL 108 MEQ/L (98-107); CREATININE FOR GFR 0.66 MG/DL (0.55-1.30); FERRITIN 424 NG/ML (8-252); GLOMERULAR FILTRATION RATE > 60.0 (>51); GLUCOSE, FASTING 76 MG/DL (70-100); MAGNESIUM LEVEL 2.1 MG/DL (1.8-2.4); NT-PRO BNP 121 PG/ML (<125); POTASSIUM SERUM 3.7 MEQ/L (3.5-5.1); SODIUM LEVEL 141 MEQ/L (136-145); TOTAL PROTEIN 5.6 GM/DL (6.4-8.2)
[2020-10-04 07:07] LABS: ATYPICAL LYMPH 7 % (0-5); EOSINOPHILS 1 % (0-3); LYMPHOCYTES 33 % (16-44); MONOCYTES 7 % (0-5); NEUTROPHILS 52 % (28-66); PLATELET ESTIMATE NORMAL (NORMAL)
[2020-10-04 07:08] LABS: POLYCHROMASIA 1+
[2020-10-04] MEDS: COMBIVENT RESPIMAT 100-20MCG INHALER 4GM INH SCH ×2 (07:28→11:54)
[2020-10-04] MEDS ORDERED: predniSONE 10 MG TAB PO SCH (09:00)
[2020-10-04] MEDS ORDERED: BENZ-18 PO (12:41)
[2020-10-04] MEDS ORDERED: VENTAER INH (12:41)
[2020-10-04] MEDS ORDERED: PRED10TA2 PO (12:41)
[2020-10-04] MEDS ORDERED: ASPI81TA26 PO (12:41)
--- NOTE | 2020-10-04 17:15 | DS.PDOC ---
Discharge Summary General Date of Admission Sep 30, 2020 at 00:15 Date of Discharge 10/04/20 Discharge Summary PROCEDURES PERFORMED DURING STAY: [None]. DISCHARGE DIAGNOSES: COVID-19 Pneumonia Obesity TRACY COMPLICATIONS/CHIEF COMPLAINT: Covid-19/Pneumonia Due To Sars-Associated Coronavirus HOSPITAL COURSE: This is a 50-year-old W with history of bladder cancer, Obesity, TRACY who presents with fevers, fatigue, diarrhea and found to have COVID - 19 pneumonia. Covid 19 pneumonia with acute hypoxic respiratory failure Received IV dexamethasone, ASA, Lovenox BID, Symptomatic treatment with Robitussin, Tessalon Perles Inflammatory markers have improved continue steroid taper, albuterol and ASA. TRACY use CPAP Hypokalemia: replated DISCHARGE MEDICATIONS: Please see below. ALLERGIES: Please see below. PHYSICAL EXAMINATION ON DISCHARGE: VITAL SIGNS: Please see below. GENERAL: alert and oriented, in no apparent distress, conversant in full sentences. HEENT: PERRL, EOMI, Oral mucous membranes are moist without lesions. NECK: The patient has no noted JVD. CHEST/LUNGS: bilateral vesicular breath sounds, with few basal crackles. HEART: Regular rate and rhythm. No murmurs, rubs, or gallops are appreciated. ABDOMEN: Normoactive sounds, soft, nontender, and nondistended. Bowel sounds are positive. No organomegaly is appreciated, and without rebound or guarding EXTREMITIES: No peripheral edema SKIN: The patients skin is warm and dry, without rashes or lesions. PSYCHIATRIC: AAO x 3, normal mood/affect NEUROLOGIC: The patient has 5/5 strength to the upper and lower extremities bilaterally. Sensation is intact throughout. CN3-12 intact. LABORATORY DATA: Please see below. IMAGING: CXR: Bilateral pulmonary infiltrates. Findings consistent with bilateral pneumonitis, likely viral. ACTIVITY: [As tolerated]. DIET: As tolerated DISPOSITION: 06 Home Health Service. DISCHARGE INSTRUCTIONS: PMD in 1 to 2 weeks. DISCHARGE CONDITION: [Stable]. TIME SPENT ON DISCHARGE: 35 minutes. Vital Signs/I&Os Vital Signs Date Time Temp Pulse Resp B/P (MAP) Pulse Ox O2 Delivery O2 Flow Rate FiO2 10/04/20 04:25 98.2 69 18 109/60 (76) 96 Nasal Cannula 3.0 I&O- Last 24 Hours up to 6 AM 10/04/20 05:59 Intake Total 600 ml Output Total 250 ml Balance 350 ml Laboratory Data Labs 24H Laboratory Tests 2 10/04/20 05:44: Immature Granulocyte % (Auto) , Neutrophils (%) (Auto) , Nucleated Red Blood Cells % (auto) 0.0, Neutrophils 52, Lymphocytes (Manual) 33, Monocytes (Manual) 7H, Eosinophils (Manual) 1, Atypical Lymphocytes 7H, Polychromasia 1+, Platelet Estimate NORMAL, Prothrombin Time 12.6, Prothromb Time International Ratio 0.92, Activated Partial Thromboplast Time 31.7, Fibrinogen 336, D-Dimer, Quantitative 385.58, Anion Gap 2L, Glomerular Filtration Rate > 60.0, Calcium Level 8.1L, Magnesium Level 2.1, Ferritin 424H, Total Bilirubin 0.4, Direct Bilirubin 0.1, Aspartate Amino Transf (AST/SGOT) 47H, Alanine Aminotransferase (ALT/SGPT) 101H, Alkaline Phosphatase 57, C-Reactive Protein, Quantitative 0.72H, PB-Gia-Z-Type Natriuretic Peptide 121, Total Protein 5.6L, Albumin 2.6L, Albumin/Globulin Ratio 0.9L, Procalcitonin <0.05 10/04/20 12:10: D-Dimer, Quantitative 364.12, C-Reactive Protein, Quantitative 1.40H CBC/BMP Laboratory Tests 10/04/20 05:44 Microbiology Microbiology 09/29/20 Blood Culture - Preliminary, Resulted No Growth after 72 hours. All specime... 09/29/20 Blood Culture - Preliminary, Resulted No Growth after 72 hours. All specime... Discharge Medications Scheduled Albuterol Sulfate (Ventolin Hfa) 18 Gm Hfa.aer.ad, 2 PUFF INH TID Aspirin (Aspirin EC) 81 Mg Tablet.dr, 1 TAB PO DAILY for pain Prednisone (Prednisone) 10 Mg Tablet, 10 MG PO TAPER 3 tabs daily x 2 days, then 2 tabs daily x 3 days, then 1 tab daily x 3 days and stop Zinc (Zinc) 50 Mg Tablet, 50 MG PO DAILY, (Reported) Scheduled PRN Acetaminophen (Acetaminophen) 325 Mg Tablet, 650 MG PO Q6H PRN for PAIN / FEVER, (Reported) Benzonatate (Benzonatate) 100 Mg Capsule, 200 MG PO Q8HP PRN for COUGH Diphenhydramine HCl (Benadryl) 25 Mg Capsule, 25 MG PO Q6H PRN for ITCHING, (Reported) Loperamide HCl (Imodium A-D) 2 Mg Tablet, 2 MG PO ASDIRECTED PRN for DIARRHEA, (Reported) Ondansetron (Ondansetron Odt) 4 Mg Tab.rapdis, 4 MG PO Q6-8HP PRN for nausea/vomiting Allergies Coded Allergies: Contrast Media (Verified Allergy, Unknown, 08/21/20) ciprofloxacin (Verified Allergy, Unknown, 08/21/20) levofloxacin (Verified Allergy, Unknown, 08/21/20) DUSTIN SR MD Oct 04, 2020 17:15
== END 2020-10-04 16:20 | disposition home health service (06) | DRG 137 ==
LOC: M ED 19:22 → M ED INP 09-30 00:15 → M 4MAIN 09-30 03:54
PROVIDERS: ADMIT Family Medicine; ATTEND Internal Medicine Nephrology
PROC: 3E0333Z Introduction of Anti-inflammatory into Peripheral Vein, Percutaneous Approach (ICD-10-PCS; principal; 2020-09-30)
DX: U07.1 COVID-19 (principal); J12.89 Other viral pneumonia; Z85.51 Personal history of malignant neoplasm of bladder; E87.6 Hypokalemia; G47.33 Obstructive sleep apnea (adult) (pediatric); R19.7 Diarrhea, unspecified; E66.9 Obesity, unspecified; Z79.899 Other long term (current) drug therapy; Z88.1 Allergy status to other antibiotic agents; Z91.041 Radiographic dye allergy status; Z68.38 Body mass index [BMI] 38.0-38.9, adult

== ENCOUNTER → 2020-10-16 | Outpatient (CLI) | payer SELFPAY ==
[~2020-10-16] MED LIST changes: +ACET-838 PO; +ASPI81TA26 PO; +BENA25CA4 PO; +BENZ-18 PO; +LOPE2TAB12 PO; +PRED10TA2 PO; +VENTAER INH; +ZINC1TAB2 PO
== END ==
LOC: M LABSMTC 11:25
PROVIDERS: ATTEND Pediatrics
DX: Z20.828 Contact with and (suspected) exposure to other viral communicable diseases (principal)

== ENCOUNTER → 2020-11-05 | Outpatient (REF) | payer OTHER | LOC: M SMT 17:07 | PROVIDERS: ATTEND Urology | DX: C67.9 Malignant neoplasm of bladder, unspecified (principal) ==

== ENCOUNTER 2020-12-23 20:41 | Emergency (ER) | payer OTHER ==
[~2020-12-23] VITALS: Ht 180.3 cm; Wt 130.8 kg
[2020-12-23] MEDS ORDERED: CETI10CH PO (20:52)
[2020-12-23] MEDS ORDERED: ASPIRIN 81 MG CHEW TABLET PO ONE (21:15)
[2020-12-23 21:22] LABS: BASO # 0.1 10^3/uL (0.0-0.2); BASO % 0.9 % (0.0-1.0); EOS # 0.2 10^3/uL (0.0-0.5); EOS % 2.9 % (0.0-3.0); HEMATOCRIT 41.4 % (36.0-47.0); HEMOGLOBIN 13.3 g/dl (12.0-15.5); LYMPH # 2.9 10^3/uL (1.5-5.0); LYMPH % 35.9 % (24.0-44.0); MEAN CORPUSCULAR HEMOGLOBIN 28.8 pg (27.0-33.0); MEAN CORPUSCULAR HGB CONC 32.1 g/dl (32.0-36.5); MEAN CORPUSCULAR VOLUME 89.6 fl (80.0-96.0); MONO % 11.8 % (2.0-8.0); NEUTROPHILS # 3.9 10^3/uL (1.5-8.5); NEUTROPHILS % 48.1 % (36.0-66.0); PLATELET COUNT, AUTOMATED 221 10^3/uL (150-450); RED BLOOD COUNT 4.62 10^6/uL (4.00-5.40); WHITE BLOOD COUNT 8.2 10^3/uL (4.0-10.0)
[2020-12-23 21:32] LABS: INR 0.91; PROTHROMBIN TIME 12.4 SECONDS (12.5-14.3)
[2020-12-23 21:35] LABS: D-DIMER QUANT 476.01 ng/ml (<500)
[2020-12-23 22:03] LABS: ALBUMIN 3.7 GM/DL (3.2-5.2); ALT/SGPT 52 U/L (12-78); BILIRUBIN,DIRECT < 0.1 MG/DL (0.0-0.2); BILIRUBIN,TOTAL 0.2 MG/DL (0.2-1.0); BLOOD UREA NITROGEN 18 MG/DL (7-18); CALCIUM LEVEL 8.8 MG/DL (8.5-10.1); CARBON DIOXIDE LEVEL 30 MEQ/L (21-32); CHLORIDE LEVEL 105 MEQ/L (98-107); CK-MB VALUE MASS 1.2 NG/ML (<3.6); CPK CREATINE PHOSPHOKINASE 51 U/L (26-192); CREATININE FOR GFR 0.82 MG/DL (0.55-1.30); GLOMERULAR FILTRATION RATE > 60.0 (>51); GLUCOSE, FASTING 99 MG/DL (70-100); LIPASE 202 U/L (73-393); MB/CK RELATIVE INDEX 2.35 (< OR =4); POTASSIUM SERUM 3.8 MEQ/L (3.5-5.1); SODIUM LEVEL 140 MEQ/L (136-145); TOTAL PROTEIN 7.1 GM/DL (6.4-8.2); TROPONIN I < 0.02 NG/ML (< 0.10)
--- NOTE | 2020-12-23 22:18 | REPVR ---
PROCEDURE INFORMATION: Exam: XR Chest Exam date and time: 12/23/2020 10:00 PM Age: 50 years old Clinical indication: Chest pain; Type not specified TECHNIQUE: Imaging protocol: XR of the chest Views: 1 view. COMPARISON: CR PORTABLE CHEST X-RAY 09/29/2020 9:39 PM FINDINGS: Lungs: There is decreased inflation of the lungs. Decreased bilateral pulmonary infiltrates and atelectasis since the prior study. No current infiltrates. Pleural spaces: Unremarkable. No pleural effusion. No pneumothorax. Heart/Mediastinum: Unremarkable. No cardiomegaly. Bones/joints: Unremarkable. Soft tissues: There are moderately generous overlying soft tissues. IMPRESSION: Negative poor inspiratory chest with clearing of bilateral pulmonary infiltrates and atelectasis since 09/29/2020. Electronically signed by: Laurent Sweet On 12/23/2020 22:19:32 PM
[2020-12-24 03:36] LABS: CK-MB VALUE MASS 1.2 NG/ML (<3.6); CPK CREATINE PHOSPHOKINASE 43 U/L (26-192); MB/CK RELATIVE INDEX 2.79 (< OR =4); TROPONIN I < 0.02 NG/ML (< 0.10)
[2020-12-24 04:15] VITALS: BP 122/56
--- NOTE | 2020-12-24 07:33 | ECGEPIP ---
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
--- NOTE | 2020-12-24 07:35 | ECGEPIP ---
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
== END 2020-12-24 04:30 | disposition home or self-care (01) ==
LOC: M ED 20:41
DX: R07.89 Other chest pain (principal); R06.02 Shortness of breath; E55.9 Vitamin D deficiency, unspecified; G47.33 Obstructive sleep apnea (adult) (pediatric); Z88.1 Allergy status to other antibiotic agents; Z91.041 Radiographic dye allergy status; Z79.899 Other long term (current) drug therapy; Z87.891 Personal history of nicotine dependence

== ENCOUNTER → 2021-01-17 | Outpatient (CLI) | payer OTHER ==
[~2021-01-17] MED LIST changes: +CETI10CH PO
--- NOTE | 2021-01-17 15:51 | PFTRPT ---
Height: 71.50 Inches Weight: 283.00 Lbs BSA: 2.46 Diagnosis: R06.02 DATE: 01/17/2021 ORDERING PHYSICIAN: Duyen Freeman NP Pre and post bronchodilator studies have excellent technical quality. Forced vital capacity is normal. FEV1 is in proportion. Obstructive index is therefore normal. Expiratory limit of the flow-volume loop is normal. No significant bronchodilator response is identified. Total lung capacity is normal. Residual volume is in proportion. Diffusing capacity is normal. Hemoglobin is acceptable at 14. Airway resistance and conductance are normal. IMPRESSION: Normal study. MTDD
== END ==
LOC: M CARPUL 14:48
PROVIDERS: ATTEND Nurse Practitioner Adult Health
DX: R06.02 Shortness of breath (principal)

== ENCOUNTER → 2021-06-07 | Outpatient (CLI) | payer OTHER ==
[~2021-06-07] MED LIST changes: -ACET-838 PO; +ACET32TAB PO
[2021-06-07 13:40] LABS: BASO # 0.1 10^3/uL (0.0-0.2); BASO % 0.7 % (0.0-1.0); EOS # 0.2 10^3/uL (0.0-0.5); EOS % 3.4 % (0.0-3.0); HEMATOCRIT 43.3 % (36.0-47.0); LYMPH # 1.8 10^3/uL (1.5-5.0); LYMPH % 25.8 % (24.0-44.0); MEAN CORPUSCULAR HEMOGLOBIN 28.8 pg (27.0-33.0); MEAN CORPUSCULAR HGB CONC 32.3 g/dl (32.0-36.5); MEAN CORPUSCULAR VOLUME 89.1 fl (80.0-96.0); MONO # 0.8 10^3/uL (0.0-0.8); MONO % 11.3 % (2.0-8.0); NEUTROPHILS # 4.2 10^3/uL (1.5-8.5); NEUTROPHILS % 58.2 % (36.0-66.0); PLATELET COUNT, AUTOMATED 204 10^3/uL (150-450); RED BLOOD COUNT 4.86 10^6/uL (4.00-5.40); WHITE BLOOD COUNT 7.1 10^3/uL (4.0-10.0)
[2021-06-07 14:32] LABS: ERYTHROCYTE SEDIMENTATION RATE 14 mm/hr (0-30)
[2021-06-07 14:53] LABS: ALBUMIN 3.8 GM/DL (3.2-5.2); ALT/SGPT 37 U/L (12-78); BILIRUBIN,TOTAL 0.4 MG/DL (0.2-1.0); BLOOD UREA NITROGEN 18 MG/DL (7-18); CALCIUM LEVEL 9.1 MG/DL (8.5-10.1); CARBON DIOXIDE LEVEL 28 MEQ/L (21-32); CHLORIDE LEVEL 107 MEQ/L (98-107); CREATININE FOR GFR 0.74 MG/DL (0.55-1.30); GLOMERULAR FILTRATION RATE > 60.0 (>51); GLUCOSE, FASTING 92 MG/DL (70-100); POTASSIUM SERUM 4.5 MEQ/L (3.5-5.1); SODIUM LEVEL 140 MEQ/L (136-145); TOTAL PROTEIN 7.3 GM/DL (6.4-8.2); VITAMIN B12 LEVEL 746 PG/ML (247-911)
== END ==
LOC: M LAB 12:01
PROVIDERS: ATTEND Nurse Practitioner Family
DX: R29.90 Unspecified symptoms and signs involving the nervous system (principal); R51.9 Headache, unspecified

== ENCOUNTER → 2022-03-06 | Outpatient (CLI) | payer OTHER ==
[2022-03-06 13:17] LABS: FREE T4 1.04 NG/DL (0.76-1.46); RHEUMATOID FACTOR QUANT < 10.0 IU/ML (<15.0); THYROXINE (T4) 11.6 UG/DL (4.5-12.0); VITAMIN B12 LEVEL 1004 PG/ML
[2022-03-06 15:09] LABS: HEMOGLOBIN A1c 5.5 %
[2022-03-07 18:33] LABS: FOLATE 14.3 NG/ML
== END ==
LOC: M WUC 09:04
PROVIDERS: ATTEND Psychiatry & Neurology Neurology
DX: E11.51 Type 2 diabetes mellitus with diabetic peripheral angiopathy without gangrene (principal); G62.9 Polyneuropathy, unspecified

== ENCOUNTER → 2022-03-06 | Outpatient (CLI) | payer OTHER ==
[2022-03-06 13:11] LABS: HEMATOCRIT 41.1 % (36.0-47.0); HEMOGLOBIN 13.3 g/dl (12.0-15.5); MEAN CORPUSCULAR HEMOGLOBIN 29.4 pg (27.0-33.0); MEAN CORPUSCULAR HGB CONC 32.4 g/dl (32.0-36.5); MEAN CORPUSCULAR VOLUME 90.9 fl (80.0-96.0); PLATELET COUNT, AUTOMATED 199 10^3/uL (150-450); RED BLOOD COUNT 4.52 10^6/uL (4.00-5.40); WHITE BLOOD COUNT 6.3 10^3/uL (4.0-10.0)
[2022-03-06 13:12] LABS: ALBUMIN 3.8 GM/DL (3.2-5.2); ALT/SGPT 48 U/L (12-78); BILIRUBIN,TOTAL 0.5 MG/DL (0.2-1.0); BLOOD UREA NITROGEN 13 MG/DL (7-18); C REACTIVE PROTEIN QUANTITATIV 0.62 MG/DL (0.00-0.30); CALCIUM LEVEL 9.3 MG/DL (8.5-10.1); CARBON DIOXIDE LEVEL 28 MEQ/L (21-32); CHLORIDE LEVEL 107 MEQ/L (98-107); CHOLESTEROL LEVEL 183 MG/DL (<200); CHOLESTEROL RISK RATIO 2.951 (<5); CREATININE FOR GFR 0.73 MG/DL (0.55-1.30); FREE T4 1.03 NG/DL (0.76-1.46); GLOMERULAR FILTRATION RATE > 60.0 (>51); GLUCOSE, FASTING 92 MG/DL (70-100); HDL CHOLESTEROL 62 MG/DL (>40); LDL CHOLESTEROL 102 MG/DL (<100); NON-HDL-C 121 MG/DL; SODIUM LEVEL 141 MEQ/L (136-145); TOTAL PROTEIN 7.2 GM/DL (6.4-8.2); TRIGLYCERIDES LEVEL 93 MG/DL (<150)
[2022-03-06 13:15] LABS: TOTAL 25(OH) VITAMIN D 28.4 NG/ML (30.0-100.0); VITAMIN B12 LEVEL 922 PG/ML (247-911)
[2022-03-06 13:41] LABS: MALB URINE SIEMENS 9.2 MG/L; MAU/CREAT RATIO 6.3 MCG/MG (0.0-30.0)
[2022-03-06 15:09] LABS: HEMOGLOBIN A1c 5.5 %
== END ==
LOC: M WUC 09:07
PROVIDERS: ATTEND Internal Medicine Hematology
DX: E66.9 Obesity, unspecified (principal)

== ENCOUNTER → 2022-04-04 | Outpatient (CLI) | payer OTHER | LOC: M PLALAB 11:34 | PROVIDERS: ATTEND Internal Medicine Hematology | DX: B37.0 Candidal stomatitis (principal) ==

== ENCOUNTER 2022-06-17 14:15 | Outpatient (RCR) | payer OTHER | END 2022-06-18 | LOC: M PT 14:15 | PROVIDERS: ATTEND Internal Medicine Hematology | DX: M54.59 Other low back pain (principal) ==

== ENCOUNTER → 2022-06-20 | Outpatient (CLI) | payer OTHER | LOC: M PLALAB 14:54 → M PLAIMG 14:54 | PROVIDERS: ATTEND Internal Medicine Hematology | DX: E88.81 Metabolic syndrome and other insulin resistance (principal); M51.36 Other intervertebral disc degeneration, lumbar region ==

== ENCOUNTER 2022-07-03 14:56 | Outpatient (RCR) | payer OTHER | END 2022-07-18 | LOC: M PT 14:56 | PROVIDERS: ATTEND Internal Medicine Hematology | DX: M54.59 Other low back pain (principal) ==

== ENCOUNTER → 2022-07-09 | Outpatient (REF) | payer OTHER | LOC: M SFHCWAGY 15:08 | PROVIDERS: ATTEND Advanced Practice Midwife | DX: Z01.419 Encounter for gynecological examination (general) (routine) without abnormal findings (principal); Z12.4 Encounter for screening for malignant neoplasm of cervix; Z77.9 Other contact with and (suspected) exposures hazardous to health ==

== ENCOUNTER → 2022-07-09 | Outpatient (CLI) | payer OTHER | LOC: M WHC 12:56 | PROVIDERS: ATTEND Advanced Practice Midwife | DX: Z12.31 Encounter for screening mammogram for malignant neoplasm of breast (principal) ==

== ENCOUNTER → 2022-07-10 | Outpatient (REF) | payer OTHER | LOC: M PLALAB 12:00 | PROVIDERS: ATTEND Advanced Practice Midwife | DX: L98.9 Disorder of the skin and subcutaneous tissue, unspecified (principal); N90.4 Leukoplakia of vulva ==

== ENCOUNTER → 2022-08-11 | Outpatient (CLI) | payer OTHER | LOC: M WHC 12:57 | PROVIDERS: ATTEND Advanced Practice Midwife | DX: R92.8 Other abnormal and inconclusive findings on diagnostic imaging of breast (principal) ==

== ENCOUNTER → 2022-11-21 | Outpatient (REF) | payer OTHER | LOC: M SMT 16:47 | PROVIDERS: ATTEND Urology | DX: C67.9 Malignant neoplasm of bladder, unspecified (principal) ==

== ENCOUNTER → 2023-02-10 | Outpatient (CLI) | payer OTHER | LOC: M WHC 14:33 | PROVIDERS: ATTEND Advanced Practice Midwife | DX: Z12.31 Encounter for screening mammogram for malignant neoplasm of breast (principal) ==

== ENCOUNTER → 2023-03-13 | Outpatient (REF) | payer OTHER ==
[2023-03-13 17:41] LABS: APPEARANCE, URINE CLEAR (CLEAR); BACTERIA, URINE AUTO NEGATIVE (NEGATIVE); BILIRUBIN, URINE AUTO NEGATIVE (NEGATIVE); BLOOD, URINE BLOOD 2+ (NEGATIVE); COLOR, URINE YELLOW (YELLOW); GLUCOSE, URINE (UA) AUTO NEGATIVE (NEGATIVE); KETONE, URINE AUTO NEGATIVE (NEGATIVE); LEUKOCYTE ESTERASE, URINE AUTO NEGATIVE (NEGATIVE); NITRITE, URINE AUTO NEGATIVE (NEGATIVE); PROTEIN, URINE AUTO NEGATIVE (NEGATIVE); RBC, URINE AUTO 4 /HPF (0-3); SQUAMOUS EPITHELIAL CELL UR AU 0 /HPF (0-6); UROBILINOGEN, URINE AUTO 0.2 mg/dL (0.0-2.0); WBC, URINE AUTO 0 /HPF (0-3)
== END ==
LOC: M LAB REF 16:16
PROVIDERS: ATTEND Physician Assistant
DX: N39.0 Urinary tract infection, site not specified (principal)

== ENCOUNTER → 2023-04-17 | Outpatient (CLI) | payer OTHER ==
[2023-04-17 12:57] LABS: MEAN CORPUSCULAR HEMOGLOBIN 29.3 pg (27.0-33.0); MEAN CORPUSCULAR HGB CONC 32.5 g/dl (32.0-36.5); MEAN CORPUSCULAR VOLUME 90.3 fl (80.0-96.0); PLATELET COUNT, AUTOMATED 191 10^3/uL (150-450); RED BLOOD COUNT 4.43 10^6/uL (4.00-5.40); WHITE BLOOD COUNT 6.1 10^3/uL (4.0-10.0)
[2023-04-17 13:09] LABS: MALB URINE SIEMENS < 3.0 MG/L; MAU/CREAT RATIO 6.1 MCG/MG (0.0-30.0)
[2023-04-17 13:12] LABS: ALBUMIN 3.7 G/DL (3.2-5.2); ALKALINE PHOSPHATASE 78 U/L (46-116); ALT/SGPT 32 U/L (7.0-40); AST/SGOT < 8 U/L (<34); BILIRUBIN,TOTAL 0.7 MG/DL (0.3-1.2); BLOOD UREA NITROGEN 13 MG/DL (9-23); C REACTIVE PROTEIN QUANTITATIV < 0.40 MG/DL (<1.0); CALCIUM LEVEL 8.7 MG/DL (8.5-10.1); CARBON DIOXIDE LEVEL 29 MMOL/L (20-31); CHLORIDE LEVEL 109 MMOL/L (98-107); CHOLESTEROL LEVEL 173 MG/DL (<200); CHOLESTEROL RISK RATIO 2.79 (<5); CREATININE FOR GFR 0.67 MG/DL (0.55-1.30); GLOMERULAR FILTRATION RATE > 60.0 (>51); GLUCOSE, FASTING 98 MG/DL (60-100); LDL CHOLESTEROL 95.6 MG/DL (<100); POTASSIUM SERUM 4.6 MMOL/L (3.5-5.1); SODIUM LEVEL 141 MMOL/L (136-145); TOTAL PROTEIN 6.4 G/DL (5.7-8.2); TRIGLYCERIDES LEVEL 77 MG/DL (<150)
[2023-04-17 13:13] LABS: TOTAL 25(OH) VITAMIN D 36.1 NG/ML (20.0-100.0); VITAMIN B12 LEVEL 541 PG/ML (211-911)
[2023-04-17 13:14] LABS: FREE T4 1.07 NG/DL (0.89-1.76); THYROID STIMULATING HORMONE 2.177 uIU/ML (0.55-4.78)
[2023-04-17 13:29] LABS: HEMOGLOBIN A1c 5.5 % (4.0-6.0)
== END ==
LOC: M WUC 08:28
PROVIDERS: ATTEND Internal Medicine Hematology
DX: Z13.220 Encounter for screening for lipoid disorders (principal)

== ENCOUNTER → 2023-06-04 | Outpatient (REF) | payer OTHER ==
[~2023-06-04] MED LIST changes: +APPL300T4 PO; +BLAC540C3 PO; +CVS500CA5 PO; +GALZ50CA PO; +THERTAB52 PO; +VITA100093 PO; +XYZASOL2 PO; +[UNRECOGNIZED DRUG - OTHER] PO
== END ==
LOC: M SFHCDERM 12:31
PROVIDERS: ATTEND Nurse Practitioner Family
DX: L85.9 Epidermal thickening, unspecified (principal)

== ENCOUNTER 2023-06-05 09:45 | Day surgery (SDC) | payer OTHER ==
[~2023-06-05] VITALS: Ht 180.3 cm; Wt 120.2 kg
[~2023-06-05 09:45] MED LIST changes: +NS 1,000 ML IV ONE
[2023-06-05 10:11] VITALS: TEMP 96.8
[2023-06-05] MEDS ORDERED: propofoL 200 MG/20 ML VIAL As Ordered ONE ×2 (10:43→11:00)
[2023-06-05 11:45] VITALS: BP 117/56; O2SAT 99
== END 2023-06-05 11:47 | disposition home or self-care (01) ==
LOC: M OPP 09:45
PROVIDERS: ATTEND Internal Medicine Gastroenterology
DX: D12.7 Benign neoplasm of rectosigmoid junction (principal); K64.9 Unspecified hemorrhoids; R19.5 Other fecal abnormalities; Z80.0 Family history of malignant neoplasm of digestive organs; Z79.1 Long term (current) use of non-steroidal anti-inflammatories (NSAID); Z88.1 Allergy status to other antibiotic agents; Z91.041 Radiographic dye allergy status

== ENCOUNTER → 2023-09-01 | Outpatient (CLI) | payer OTHER ==
[~2023-09-01] MED LIST changes: -NS 1,000 ML IV ONE
[2023-09-01 11:48] LABS: HEMATOCRIT 42.3 % (36.0-47.0); HEMOGLOBIN 13.4 g/dl (12.0-15.5); MEAN CORPUSCULAR HEMOGLOBIN 29.1 pg (27.0-33.0); MEAN CORPUSCULAR HGB CONC 31.7 g/dl (32.0-36.5); MEAN CORPUSCULAR VOLUME 91.8 fl (80.0-96.0); PLATELET COUNT, AUTOMATED 210 10^3/uL (150-450); RED BLOOD COUNT 4.61 10^6/uL (4.00-5.40); WHITE BLOOD COUNT 7.5 10^3/uL (4.0-10.0)
[2023-09-01 12:20] LABS: MAU/CREAT RATIO 10.2 MCG/MG (0.0-30.0)
[2023-09-01 12:23] LABS: ALBUMIN 3.6 G/DL (3.2-5.2); ALKALINE PHOSPHATASE 89 U/L (46-116); ALT/SGPT 47 U/L (7.0-40); AST/SGOT 24 U/L (<34); BILIRUBIN,TOTAL 0.5 MG/DL (0.3-1.2); BLOOD UREA NITROGEN 18 MG/DL (9-23); CALCIUM LEVEL 8.6 MG/DL (8.5-10.1); CARBON DIOXIDE LEVEL 30 MMOL/L (20-31); CHLORIDE LEVEL 105 MMOL/L (98-107); CHOLESTEROL LEVEL 201 MG/DL (<200); CHOLESTEROL RISK RATIO 2.88 (<5); CREATININE FOR GFR 0.69 MG/DL (0.55-1.30); GLOMERULAR FILTRATION RATE > 60.0 (>51); GLUCOSE, FASTING 95 MG/DL (60-100); HDL CHOLESTEROL 69.6 MG/DL (>40); LDL CHOLESTEROL 115.6 MG/DL (<100); NON-HDL-C 131.4 MG/DL; POTASSIUM SERUM 4.2 MMOL/L (3.5-5.1); SODIUM LEVEL 141 MMOL/L (136-145); TOTAL PROTEIN 6.7 G/DL (5.7-8.2); TRIGLYCERIDES LEVEL 79 MG/DL (<150)
[2023-09-01 12:26] LABS: FREE T4 0.93 NG/DL (0.89-1.76); THYROID STIMULATING HORMONE 2.327 uIU/ML (0.55-4.78)
[2023-09-01 12:28] LABS: TOTAL 25(OH) VITAMIN D 35.6 NG/ML (20.0-100.0); VITAMIN B12 LEVEL 679 PG/ML (211-911)
[2023-09-01 13:03] LABS: HEMOGLOBIN A1c 5.5 % (4.0-6.0)
== END ==
LOC: M WUC 08:14
PROVIDERS: ATTEND Internal Medicine Hematology
DX: E78.00 Pure hypercholesterolemia, unspecified (principal)

== ENCOUNTER → 2023-09-02 | Outpatient (REF) | payer OTHER | LOC: M PLALAB 09:28 | PROVIDERS: ATTEND Advanced Practice Midwife | DX: Z01.419 Encounter for gynecological examination (general) (routine) without abnormal findings (principal); Z12.4 Encounter for screening for malignant neoplasm of cervix ==

== ENCOUNTER → 2023-09-02 | Outpatient (CLI) | payer OTHER | LOC: M WHC 08:31 | PROVIDERS: ATTEND Advanced Practice Midwife | DX: Z12.31 Encounter for screening mammogram for malignant neoplasm of breast (principal) ==

== ENCOUNTER → 2023-09-07 | Outpatient (CLI) | payer OTHER | LOC: M WHC 15:05 | PROVIDERS: ATTEND Advanced Practice Midwife | DX: R14.0 Abdominal distension (gaseous) (principal) ==

== ENCOUNTER → 2023-11-23 | Outpatient (REF) | payer OTHER | LOC: M SMT 17:02 | PROVIDERS: ATTEND Urology | DX: C67.9 Malignant neoplasm of bladder, unspecified (principal) ==

== ENCOUNTER → 2024-03-28 | Outpatient (CLI) | payer OTHER ==
[~2024-03-28] MED LIST changes: +CRAN500C11 PO; -CVS500CA5 PO; +ONDA-282 PO; -ONDA4TAB6 PO
[2024-03-28 11:29] LABS: BASO % 0.6 % (0.0-1.0); EOS # 0.2 10^3/uL (0.0-0.5); EOS % 2.5 % (0.0-3.0); HEMATOCRIT 43.5 % (36.0-47.0); HEMOGLOBIN 14.2 g/dl (12.0-15.5); LYMPH # 1.8 10^3/uL (1.5-5.0); LYMPH % 28.8 % (24.0-44.0); MEAN CORPUSCULAR HEMOGLOBIN 29.3 pg (27.0-33.0); MEAN CORPUSCULAR HGB CONC 32.6 g/dl (32.0-36.5); MEAN CORPUSCULAR VOLUME 89.7 fl (80.0-96.0); MONO # 0.6 10^3/uL (0.0-0.8); NEUTROPHILS # 3.6 10^3/uL (1.5-8.5); NEUTROPHILS % 57.9 % (36.0-66.0); PLATELET COUNT, AUTOMATED 214 10^3/uL (150-450); RED BLOOD COUNT 4.85 10^6/uL (4.00-5.40); WHITE BLOOD COUNT 6.3 10^3/uL (4.0-10.0)
[2024-03-28 11:46] LABS: HEMOGLOBIN A1c 5.5 % (4.0-6.0)
[2024-03-28 11:59] LABS: CREATININE, URINE 154.1 MG/DL; MAU/CREAT RATIO 2.5 MCG/MG (0.0-30.0)
[2024-03-28 12:01] LABS: THYROID STIMULATING HORMONE 2.263 uIU/ML (0.55-4.78); TOTAL 25(OH) VITAMIN D 37.5 NG/ML (20.0-100.0)
[2024-03-28 12:03] LABS: FREE T4 1.15 NG/DL (0.89-1.76)
[2024-03-28 12:05] LABS: VITAMIN B12 LEVEL 923 PG/ML (211-911)
[2024-03-28 12:07] LABS: ALBUMIN 3.8 G/DL (3.2-5.2); ALKALINE PHOSPHATASE 90 U/L (46-116); ALT/SGPT 28 U/L (7.0-40); AST/SGOT 13 U/L (<34); BILIRUBIN,TOTAL 0.6 MG/DL (0.3-1.2); BLOOD UREA NITROGEN 15 MG/DL (9-23); CARBON DIOXIDE LEVEL 30 MMOL/L (20-31); CHLORIDE LEVEL 106 MMOL/L (98-107); CHOLESTEROL LEVEL 201 MG/DL (<200); CHOLESTEROL RISK RATIO 3.31 (<5); CREATININE FOR GFR 0.73 MG/DL (0.55-1.30); GLOMERULAR FILTRATION RATE > 60.0 (>51); GLUCOSE, FASTING 99 MG/DL (60-100); HDL CHOLESTEROL 60.7 MG/DL (>40); LDL CHOLESTEROL 118.3 MG/DL (<100); NON-HDL-C 140.3 MG/DL; POTASSIUM SERUM 4.6 MMOL/L (3.5-5.1); SODIUM LEVEL 141 MMOL/L (136-145); TRIGLYCERIDES LEVEL 110 MG/DL (<150)
== END ==
LOC: M WUC 09:00
PROVIDERS: ATTEND Internal Medicine Hematology
DX: Z13.220 Encounter for screening for lipoid disorders (principal)

== ENCOUNTER → 2024-10-21 | Outpatient (CLI) | payer OTHER ==
[~2024-10-21] MED LIST changes: -CRAN500C11 PO; +CVS500CA5 PO
[2024-10-21 17:47] LABS: ALBUMIN 3.8 G/DL (3.2-5.2); ALKALINE PHOSPHATASE 96 U/L (35-104); ALT/SGPT 25 U/L (7.0-40); AST/SGOT 15 U/L (<34); BILIRUBIN,TOTAL 0.3 MG/DL (0.3-1.2); BLOOD UREA NITROGEN 19 MG/DL (9-23); C REACTIVE PROTEIN QUANTITATIV 0.51 MG/DL (<1.0); CALCIUM LEVEL 9.3 MG/DL (8.5-10.1); CARBON DIOXIDE LEVEL 31 MMOL/L (20-31); CHLORIDE LEVEL 106 MMOL/L (98-107); CHOLESTEROL LEVEL 217 MG/DL (<200); CHOLESTEROL RISK RATIO 3.62 (<5); CREATININE FOR GFR 0.79 MG/DL (0.55-1.30); GLOMERULAR FILTRATION RATE > 60.0 (>51); GLUCOSE, FASTING 99 MG/DL (60-100); HDL CHOLESTEROL 59.9 MG/DL (>40); LDL CHOLESTEROL 116.5 MG/DL (<100); NON-HDL-C 157.1 MG/DL; SODIUM LEVEL 143 MMOL/L (136-145); TRIGLYCERIDES LEVEL 203 MG/DL (<150)
[2024-10-21 18:01] LABS: HEMOGLOBIN A1c 5.4 % (4.0-6.0)
== END ==
LOC: M PLAIMG 15:43
PROVIDERS: ATTEND Student in an Organized Health Care Education/Training Program
DX: Z00.00 Encounter for general adult medical examination without abnormal findings (principal); M67.90 Unspecified disorder of synovium and tendon, unspecified site

== ENCOUNTER → 2024-11-28 | Outpatient (REF) | payer OTHER | LOC: M SMT 12:45 | PROVIDERS: ATTEND Urology | DX: C67.9 Malignant neoplasm of bladder, unspecified (principal) ==

== ENCOUNTER → 2024-12-01 | Outpatient (CLI) | payer OTHER | LOC: M RAD 12:36 | PROVIDERS: ATTEND Student in an Organized Health Care Education/Training Program | DX: M67.90 Unspecified disorder of synovium and tendon, unspecified site (principal) ==

== ENCOUNTER → 2024-12-22 | Outpatient (CLI) | payer OTHER | LOC: M WHC 09:51 | PROVIDERS: ATTEND Advanced Practice Midwife | DX: Z12.31 Encounter for screening mammogram for malignant neoplasm of breast (principal) ==

== ENCOUNTER → 2024-12-22 | Outpatient (REF) | payer OTHER ==
[2024-12-24 14:23] LABS: HPV APTIMA Not Detected (Not Detected)
== END ==
LOC: M SFHCWAGY 13:12
PROVIDERS: ATTEND Nurse Practitioner Family
DX: Z12.4 Encounter for screening for malignant neoplasm of cervix (principal)

== ENCOUNTER → 2025-04-25 | Outpatient (CLI) | payer OTHER ==
[~2025-04-25] MED LIST changes: -GALZ50CA PO; +ZINC50CA4 PO
== END ==
LOC: M PLALAB 16:09
PROVIDERS: ATTEND Internal Medicine
DX: M25.572 Pain in left ankle and joints of left foot (principal)

== ENCOUNTER → 2025-04-25 | Outpatient (CLI) | payer OTHER | LOC: M PLALAB 16:06 | PROVIDERS: ATTEND Student in an Organized Health Care Education/Training Program | DX: M65.90 Unspecified synovitis and tenosynovitis, unspecified site (principal) ==

== ENCOUNTER → 2025-05-03 | Outpatient (CLI) | payer OTHER | LOC: M RAD 14:31 | PROVIDERS: ATTEND Internal Medicine | DX: M25.572 Pain in left ankle and joints of left foot (principal) ==

== ENCOUNTER → 2025-08-24 | Outpatient (REF) | payer OTHER ==
[2025-08-24 17:55] LABS: APPEARANCE, URINE MANUAL CLEAR (CLEAR); COLOR, URINE MANUAL GREEN (YELLOW)
[2025-08-24 17:56] LABS: BILIRUBIN, URINE MANUAL NEGATIVE (NEGATIVE); BLOOD URINE MANUAL NEGATIVE (NEGATIVE); GLUCOSE, URINE (UA) MANUAL NEGATIVE (NEGATIVE); KETONE, URINE MANUAL NEGATIVE (NEGATIVE); LEUKOCYTE ESTERASE, URINE MAN NEGATIVE (NEGATIVE); NITRITE, URINE MANUAL NEGATIVE (NEGATIVE); PH,URINE MAN 5.0 UNITS (5.0 - 7.0); PROTEIN, URINE MANUAL NEGATIVE (NEGATIVE); UROBILINOGEN, URINE MANUAL NORMAL (NORMAL)
[2025-08-24 18:04] LABS: BACTERIA, URINE NONE SEEN; HYALINE CAST, URINE NONE SEEN /lpf (0-1); SPECIFIC GRAVITY,URINE MANUAL 1.020 (1.002-1.035); SQUAMOUS EPITHELIAL CELL URINE SMALL AMOUNT /hpf (SMALL AMT)
== END ==
LOC: M LAB REF 17:09
PROVIDERS: ATTEND Physician Assistant
DX: N39.0 Urinary tract infection, site not specified (principal)

== ENCOUNTER → 2025-09-05 | Outpatient (CLI) | payer OTHER ==
[2025-09-05 18:24] LABS: CHOLESTEROL LEVEL 189.0 MG/DL (<200); CHOLESTEROL RISK RATIO 3.43 (<5); LDL CHOLESTEROL 105.2 MG/DL (<100); NON-HDL-C 134.0 MG/DL; TRIGLYCERIDES LEVEL 144.0 MG/DL (<150)
[2025-09-05 18:41] LABS: ESTIMATED AVERAGE GLUCOSE 111.0 MG/DL (60-110)
== END ==
LOC: M PLALAB 15:28
PROVIDERS: ATTEND Student in an Organized Health Care Education/Training Program
DX: Z00.00 Encounter for general adult medical examination without abnormal findings (principal); E78.2 Mixed hyperlipidemia; N76.0 Acute vaginitis; B96.89 Other specified bacterial agents as the cause of diseases classified elsewhere

== ENCOUNTER → 2025-09-05 | Outpatient (CLI) | payer OTHER ==
[2025-09-05 18:22] LABS: BASO # 0.0 10^3/uL (0.0-0.2); BASO % 0.5 % (0.0-1.0); EOS # 0.2 10^3/uL (0.0-0.5); EOS % 2.6 % (0.0-3.0); LYMPH # 2.2 10^3/uL (1.5-5.0); LYMPH % 28.6 % (24.0-44.0); MONO # 0.7 10^3/uL (0.0-0.8); MONO % 9.4 % (2.0-8.0); NEUTROPHILS # 4.5 10^3/uL (1.5-8.5); NEUTROPHILS % 58.6 % (36.0-66.0); PLATELET COUNT, AUTOMATED 237 10^3/uL (150-450)
== END ==
LOC: M PLALAB 15:31
PROVIDERS: ATTEND Advanced Practice Midwife
DX: N76.0 Acute vaginitis (principal); B96.89 Other specified bacterial agents as the cause of diseases classified elsewhere

== ENCOUNTER 2025-10-18 15:27 | Emergency (ER) | payer OTHER ==
[~2025-10-18] VITALS: Ht 182.9 cm; Wt 130.0 kg
[2025-10-18 15:36] VITALS: TEMP 96
[2025-10-18 16:06] LABS: BASO # 0.1 10^3/uL (0.0-0.2); BASO % 0.6 % (0.0-1.0); EOS # 0.2 10^3/uL (0.0-0.5); EOS % 2.2 % (0.0-3.0); LYMPH # 2.9 10^3/uL (1.5-5.0); LYMPH % 35.4 % (24.0-44.0); MONO # 0.7 10^3/uL (0.0-0.8); MONO % 8.9 % (2.0-8.0); NEUTROPHILS # 4.4 10^3/uL (1.5-8.5); NEUTROPHILS % 52.5 % (36.0-66.0); PLATELET COUNT, AUTOMATED 209 10^3/uL (150-450)
[2025-10-18 16:28] LABS: INR 0.93
[2025-10-18 16:39] LABS: CALCIUM LEVEL 8.5 MG/DL (8.5-10.1); CARBON DIOXIDE LEVEL 27.0 MMOL/L (20-31); CHLORIDE LEVEL 105.0 MMOL/L (98-107); CREATININE FOR GFR 1.01 MG/DL (0.55-1.30); GLOMERULAR FILTRATION RATE 65.3 (>51); POTASSIUM SERUM 3.6 MMOL/L (3.5-5.1); SODIUM LEVEL 143.0 MMOL/L (136-145)
[2025-10-18] MEDS: ONDANSETRON 4MG/2ML VIAL IV ONE (17:16)
[2025-10-18 19:00] VITALS: BP 103/55
[2025-10-18] MEDS ORDERED: ONDA-282 PO (19:14)
[2025-10-18 19:30] VITALS: O2SAT 100
[2025-10-18] MEDS: ONDANSETRON 4MG ORAL DISINTEGRATING TAB PO ONE (19:35)
== END 2025-10-18 19:53 | disposition home or self-care (01) ==
LOC: M ED 15:27 → EDBD 15:27 → M ED 19:53
DX: S00.03XA Contusion of scalp, initial encounter (principal); F07.81 Postconcussional syndrome; Y92.9 Unspecified place or not applicable; Y93.9 Activity, unspecified; Y99.9 Unspecified external cause status; W01.10XA Fall on same level from slipping, tripping and stumbling with subsequent striking against unspecified object, initial encounter; G47.33 Obstructive sleep apnea (adult) (pediatric); Z88.1 Allergy status to other antibiotic agents; Z88.8 Allergy status to other drugs, medicaments and biological substances; Z91.041 Radiographic dye allergy status; Z79.899 Other long term (current) drug therapy; Z79.810 Long term (current) use of selective estrogen receptor modulators (SERMs)
CPT/HCPCS: 70450; 70486; 72125; 80048; 85025; 85610; 85730; 93005; 93041; 94760; 96374; 99285; J2405